=== PATIENT | female | born 1995 | race Caucasian/White ===

== ENCOUNTER 2019-11-29 15:37 | Outpatient (REF) | payer OTHER, SELFPAY ==
[2019-11-29 18:01] LABS: SARS COV2 PCR INHOUSE NEGATIVE (Negative)
== END 2019-11-29 15:38 | disposition home or self-care (01) ==
LOC: HO.LAB 15:37
PROVIDERS: PCP Internal Medicine; Visit Provider Internal Medicine
DX: Z20.828 Contact with and (suspected) exposure to other viral communicable diseases (principal)
CPT/HCPCS: 87635

== ENCOUNTER 2019-12-02 08:13 | Outpatient (REF) | payer OTHER, SELFPAY ==
[2019-12-02 08:32] LABS: COVID-19 Test Negative (Negative)
== END 2019-12-02 08:14 | disposition home or self-care (01) ==
LOC: HO.LAB 08:13
PROVIDERS: PCP Internal Medicine; Visit Provider Internal Medicine
DX: Z20.828 Contact with and (suspected) exposure to other viral communicable diseases (principal)
CPT/HCPCS: 87635

== ENCOUNTER 2020-02-15 08:33 | Outpatient (REF) | payer OTHER, SELFPAY ==
[2020-02-16 22:38] LABS: C. trachomatis RNA TMA NOT DETECTED (NOT DETECTED); N. gonorrhoeae RNA TMA NOT DETECTED (NOT DETECTED)
== END 2020-02-15 08:34 | disposition home or self-care (01) ==
LOC: HO.LAB 08:33
PROVIDERS: PCP Internal Medicine; Visit Provider Advanced Practice Midwife
DX: Z01.419 Encounter for gynecological examination (general) (routine) without abnormal findings (principal); R79.89 Other specified abnormal findings of blood chemistry; E66.9 Obesity, unspecified; K76.0 Fatty (change of) liver, not elsewhere classified
CPT/HCPCS: 36415; 87210; 87491; 87591; 88142

== ENCOUNTER 2020-05-17 20:36 | Outpatient (REF) | payer OTHER, SELFPAY | END 2020-05-17 20:37 | disposition home or self-care (01) | LOC: HO.LAB 20:36 | PROVIDERS: Visit Provider Nurse Practitioner Primary Care | DX: J02.9 Acute pharyngitis, unspecified (principal) | CPT/HCPCS: 87071; 87880 ==

== ENCOUNTER 2020-06-03 11:48 | Outpatient (REF) | payer OTHER, SELFPAY ==
[2020-06-03 13:16] LABS: Alanine Aminotransferase 285 U/L (0-31); Aspartate Amino Transferase 128 U/L (5-31)
[2020-06-04 01:35] LABS: CT PCR NOT DETECTED (Not Detect.); NG PCR NOT DETECTED (Not Detect.)
== END 2020-06-03 11:49 | disposition home or self-care (01) ==
LOC: HO.LAB 11:48
PROVIDERS: PCP Internal Medicine; Visit Provider Advanced Practice Midwife
DX: Z01.419 Encounter for gynecological examination (general) (routine) without abnormal findings (principal); R79.89 Other specified abnormal findings of blood chemistry
CPT/HCPCS: 84450; 84460; 87491; 87591

== ENCOUNTER → 2020-06-05 10:56 | Outpatient (BNVA) | payer OTHER, SELFPAY | PROVIDERS: Visit Provider Advanced Practice Midwife ==

== ENCOUNTER 2020-06-07 16:39 | Outpatient (REF) | payer OTHER, SELFPAY ==
[2020-06-07 18:04] LABS: Alanine Aminotransferase 352 U/L (0-31); Albumin Level 4.3 g/dL (3.5-5.0); Alkaline Phosphatase 80 U/L (39-117); Aspartate Amino Transferase 203 U/L (5-31); Bilirubin Direct 0.2 mg/dL (0.0-0.5); Bilirubin Total 0.4 mg/dL (0.0-1.0); Total Protein 7.2 g/dL (6.5-8.0)
[2020-06-07 18:24] LABS: Ferritin 473 ng/mL (10-122)
[2020-06-08 14:01] LABS: Alpha 1 Anti-trypsin 205 mg/dL (83-199); Ceruloplasmin 41 mg/dL (18-53)
[2020-06-10 03:55] LABS: Hepatitis B Core Antibody Nonreactive (Nonreactive); ~Hepatitis B Surface Antibody NONREACTIVE (Nonreactive)
[2020-06-10 04:03] LABS: HBsAGNum1 0.19 S/CO (0.00-0.99); Hepatitis B Surface Antigen Negative (Negative); ~HepC Num1 0.08 S/CO (0.00-0.79); ~Hepatitis C Antibody Nonreactive (Nonreactive)
[2020-06-10 12:47] LABS: Venous Lead <1 mcg/dL (<5)
[2020-06-12 08:14] LABS: ~Hepatitis A Antibody IgM Nonreactive (Nonreactive)
== END 2020-06-07 16:40 | disposition home or self-care (01) ==
LOC: HO.LAB 16:39
PROVIDERS: PCP Internal Medicine; Visit Provider Internal Medicine
DX: R94.5 Abnormal results of liver function studies (principal)
CPT/HCPCS: 36415; 80076; 82103; 82390; 82728; 83655; 86704; 86706; 86709; 86803; 87340

== ENCOUNTER 2020-06-12 15:32 | Outpatient (REF) | payer OTHER, SELFPAY ==
[2020-06-14 15:06] LABS: Alpha 1 Anti-trypsin 177 mg/dL (83-199)
== END 2020-06-12 15:33 | disposition home or self-care (01) ==
LOC: HO.LAB 15:32
PROVIDERS: PCP Internal Medicine; Visit Provider Internal Medicine
DX: R79.89 Other specified abnormal findings of blood chemistry (principal)
CPT/HCPCS: 36415; 81256; 82103; 82104

== ENCOUNTER 2020-06-14 09:01 | Outpatient (REF) | payer OTHER, SELFPAY ==
[2020-06-14 11:57] LABS: Hematocrit 46.2 % (37-47); Hemoglobin 14.6 g/dl (12.0-16.0); Mean Corpuscular HGB Conc 31.6 g/dl (31.0-35.0); Mean Corpuscular Hemoglobin 28.3 pg (27.0-33.0); Mean Corpuscular Volume 89.7 fL (80-98); Mean Platelet Volume 11.9 fL (9.4-12.3); Platelet Count 257 X10*3/uL (160-400); Red Blood Count 5.15 X10*6/uL (4.20-5.50); Red Cell Distribution Width 12.7 % (11.0-16.0); White Blood Count 7.9 X10*3/uL (4.8-10.8)
[2020-06-14 12:03] LABS: Alanine Aminotransferase 361 U/L (0-31); Albumin Level 4.3 g/dL (3.5-5.0); Alkaline Phosphatase 81 U/L (39-117); Anion Gap 13 (12-20); Aspartate Amino Transferase 159 U/L (5-31); Bilirubin Total 0.8 mg/dL (0.0-1.0); Blood Urea Nitrogen 14 mg/dL (9-16); Calcium 9.4 mg/dL (8.4-10.2); Carbon Dioxide 25 mmol/L (22-29); Chloride 106 mmol/L (96-108); Cholesterol 169 mg/dL; Estimated Glomerular Filt Rate > 60; Glucose Random 90 mg/dL (60-115); HDL Cholesterol 36 mg/dL; LDL Cholesterol Calculated 117 mg/dl; Potassium 4.3 mmol/L (3.3-5.1); Sodium 140 mmol/L (135-145); Total Protein 7.1 g/dL (6.5-8.0); Triglycerides 83 mg/dL
[2020-06-14 12:30] LABS: Estimated Average Glucose 111 mg/dL; Ferritin 301 ng/mL (10-122); Hemoglobin A1c % 5.5 %; TSH reflex Free T4 1.47 uIU/mL (0.32-4.0)
[2020-06-14 12:36] LABS: Erythrocyte Sedimentation Rate 5 MM/HR (0-20)
[2020-06-14 12:42] LABS: Gamma Glutamyl Transpeptidase 148 U/L (7-33)
[2020-06-15 14:01] LABS: Anti Nuclear Antibody Screen NEGATIVE (NEGATIVE)
[2020-06-17 16:06] LABS: Transglutaminase Ab IgG 7 U/mL; Transglutaminase IgA 1 U/mL
[2020-06-18 14:57] LABS: Immunoglobulin G 1238 mg/dL (600-1640)
[2020-06-19 12:44] LABS: Aldolase 19.2 U/L (<=8.1); Smooth Muscle Antibody <20 U (<20); Soluble Liver Ag Autoantibody <20.1 U (0.0-20.0)
== END 2020-06-14 09:02 | disposition home or self-care (01) ==
LOC: HO.LAB 09:01
PROVIDERS: PCP Internal Medicine; Referring Provider Internal Medicine; Visit Provider Internal Medicine Gastroenterology
DX: R10.33 Periumbilical pain (principal); R79.82 Elevated C-reactive protein (CRP); K52.839 Microscopic colitis, unspecified; R79.89 Other specified abnormal findings of blood chemistry; K76.0 Fatty (change of) liver, not elsewhere classified; G89.29 Other chronic pain
CPT/HCPCS: 36415; 80053; 80061; 81256; 82085; 82550; 82728; 82784; 82977; 83036; 83516; 83520; 84443; 85027; 85652; 86038; 86039; 86140; 86255

== ENCOUNTER 2020-07-02 20:34 | Outpatient (REF) | payer OTHER, SELFPAY ==
[2020-07-02 21:04] LABS: COVID-19 Test Negative (Negative)
== END 2020-07-02 20:35 | disposition home or self-care (01) ==
LOC: HO.LAB 20:34
PROVIDERS: Visit Provider Internal Medicine
DX: Z20.822 Contact with and (suspected) exposure to COVID-19 (principal)
CPT/HCPCS: 36415; 87635

== ENCOUNTER 2020-07-16 08:26 | Outpatient (REF) | payer OTHER, SELFPAY ==
--- NOTE | ~2020-07-16 | US_ITS ---
EXAMINATION: US COMPLETE ABDOMEN WITH LIVER ELASTOGRAPHY CLINICAL INFORMATION: Increased liver function tests. COMPARISON: Abdominal ultrasound dated 10/10/2019. TECHNIQUE: Real-time imaging of the abdominal viscera. Noninvasive ultrasound liver fibrosis assessment is performed using [employer]ar[employer] ElastPQ point quantification shear wave elastography (pSWE) with a C5-2 MHz transducer. Multiple elastography samples are obtained. FINDINGS: PANCREAS: Normal. The visualized pancreatic head and body are normal in appearance. The remainder of the pancreas is obscured from visualization by the overlying bowel gas. ABDOMINAL AORTA: The proximal, middle, and distal aortic segments are normal in caliber. INFERIOR VENA CAVA: Visualized portions are normal. LIVER: The liver demonstrates normal size, contour and generally increased echogenicity. No focal lesion or intrahepatic biliary duct dilatation. The right lobe measures 16.7 cm in length. The left lobe measures 9.5 cm in length. Portal flow is towards the liver (hepatopetal). Shear wave liver elastography median stiffness is 1.52 m/s (reference: normal median stiffness is 1.3 m/s or less). IQR/median stiffness to assess sampling precision is 0.07 (reference: good quality data set is IQR/median stiffness of 0.15 or less). GALLBLADDER: Normal. The gallbladder is physiologically distended without evidence of stones, sludge, polyps, wall thickening or pericholecystic fluid. COMMON BILE DUCT: Normal in caliber measuring 0.2 cm in diameter. RIGHT KIDNEY: Normal. No hydronephrosis. No renal calculi or focal parenchymal lesions. The kidney measures 11.0 cm in maximum dimension. LEFT KIDNEY: Normal. No hydronephrosis. No renal calculi or focal parenchymal lesions. The kidney measures 12.2 cm in maximum dimension. SPLEEN: Normal. The spleen measures 10.8 cm in maximum dimension. FREE FLUID: None. US/US abdomen comp w elastography IMPRESSION: 1. There is generalized increase in hepatic echotexture, consistent with fatty infiltration or hepatocellular disease. Please correlate clinically. No focal hepatic mass or intrahepatic biliary dilatation is seen. 2. Liver elastography: In the absence of other known clinical signs, measurements rule out compensated advanced chronic liver disease. If there are known clinical signs, further testing may be needed for confirmation. REFERENCE: Society of Radiologists in Ultrasound Liver Stiffness Thresholds (2020): LIVER STIFFNESS THRESHOLDS: *Liver Stiffness equal or less than 1.3 m/s: High probability of being normal. *Liver Stiffness less than 1.7 m/s: In the absence of other known clinical signs, rules out compensated advanced chronic liver disease. *Liver Stiffness 1.7-2.1 m/s: Suggestive of compensated advanced chronic liver disease but need further test for confirmation. *Liver Stiffness over 2.1 m/s: Rules in compensated advanced chronic liver disease. *Liver Stiffness over 2.4 m/s: Suggestive of clinically significant portal hypertension. QUALITY OF DATA SET: *IQR/Median value equal or less than 0.15 implies a quality data set. *IQR/Median value over 0.15 implies a poor quality data set. SIGNIFICANT CHANGE FROM PRIOR EXAM: Significant change if liver stiffness measurement is 10% or greater from prior exam. OTHER CONSIDERATIONS: The stage of liver fibrosis may be overestimated in the setting of acute hepatitis, liver inflammation, elevated liver function tests, hepatic vascular congestion, obstructive cholestasis, non-fasting state, and infiltrative diseases such as amyloidosis and lymphoma. In some patients with NAFLD, the liver stiffness thresholds for compensated advanced chronic liver disease may be lower. In causes other than viral hepatitis and NAFLD, liver stiffness thresholds are not well established.
--- NOTE | ~2020-07-16 | US_ITS ---
EXAMINATION: DUPLEX PORTAL VENOUS SYSTEM CLINICAL INFORMATION: Elevated liver function test; question Budd-Chiari syndrome. COMPARISON: Abdominal ultrasound dated 10/10/2019. TECHNIQUE: Using a curved array transducer with grayscale, pulse Doppler and color Doppler modalities, ultrasound examination performed of the portal venous system. FINDINGS: The extrahepatic, main, right, left and portal venous segments show hepatopedal flow. The main, right and left hepatic arteries show antegrade flow. The main hepatic artery shows a peak systolic velocity of 63 cm/s. The middle, left and right hepatic vein segments show normal directional flow. The inferior vena cava is patent, with normal directional flow. No ascites is seen. No abnormal venous collaterals are seen. US/US duplex arterial venous comp IMPRESSION: Unremarkable Doppler examination of the abdomen, with normal directional flow seen of the portal veins, hepatic artery branches, hepatic veins and the inferior vena cava.
== END 2020-07-16 08:27 | disposition home or self-care (01) ==
LOC: HO.US 08:26
PROVIDERS: PCP Internal Medicine; Visit Provider Internal Medicine Gastroenterology
DX: K76.0 Fatty (change of) liver, not elsewhere classified (principal); R79.89 Other specified abnormal findings of blood chemistry
CPT/HCPCS: 76705; 76981; 93975

== ENCOUNTER 2020-07-22 10:27 | Day surgery (SDC) | payer OTHER, SELFPAY ==
[2020-07-22 10:59] VITALS: BMI 38.0
[2020-07-22 11:02] VITALS: BP 101/64; PULSE 82; RESP 16; TEMP 36.4; O2SAT 97
[2020-07-22 11:12] LABS: UPreg QC Valid YES; Urine Pregnancy NEGATIVE (NEGATIVE)
--- NOTE | 2020-07-22 11:20 | P.CONAN_ITS ---
[facility] Active Problems Active Problems: All Active Problems (Updated 06/10/20 @ 14:37 by Cristine Gregory MD) Elevated ferritin (Acute) LFT elevation (Acute) Elevated LFTs (Acute) Fatty liver (Acute) Obesity (BMI 35.0-39.9 without comorbidity) (Acute) Encounter for IUD removal (Acute) control counseling (Acute) Well woman exam with routine gynecological exam (Acute) Cystitis (Acute) Pelvic pressure in female (Acute) Past Medical History Medical History Cystitis Elevated LFTs Pelvic pressure in female Family History Family History Paternal Grandmother Diabetes Paternal Aunt Liver disease Surgical History Surgical History [place] teeth removed Social History Social History Alcohol intake: current Alcohol intake frequency: holidays/special occasions only Patient Tobacco Use Status: Current someday Tobacco user Tobacco use type: Cigarette Use of substances other than those prescribed or required for medical reasons: No Are you DNR?: No Advance Directives: No Advance Directives Information Provided: Yes Advance Directives on File: No Gender identity: female Meds Allergies Allergy/AdvReac Type Severity Reaction Status Date / Time No Known Allergies Allergy Verified 06/14/20 09:13 [No Known Allergies*] Exam Exam Date and Time: July 22, 2020 1120 Height,Weight and Vital Signs: Height 5 ft 3 in Weight 97.522 kg Last Vital Signs Temp 97.5 F 07/22/20 11:02 Pulse 82 07/22/20 11:02 Resp 16 07/22/20 11:02 BP 101/64 07/22/20 11:02 Pulse Ox 97 07/22/20 11:02 Pertinent Lab Results Pertinent Lab Results: Laboratory Tests 07/22/20 10:57 Urine Test NEGATIVE Airway Mallampati Class: II TM Dist: >3cm Neck ROM: Full
--- NOTE | 2020-07-22 11:37 | MHC.SHP ---
Pre-Procedural Eval Section B Chief Complaint: elevated LFTs Details of Present Illness: pos celiac serology Relevant Family History (Specify if Yes): No Relevant Social History: Tobacco Use Present Medications: see Short Stay Collaborative assessment Medical History: Significant History (Cystitis Elevated LFTs Pelvic pressure in female) History of Previous Operations: Relevant previous surgery/procedure and date(s) (wisdom tooth removal) Allergies: Allergies Allergy/AdvReac Type Severity Reaction Status Date / Time No Known Allergies Allergy Verified 06/14/20 09:13 [No Known Allergies*] Review of Systems Sugical H&P ROS: Negative: Constitution, Cardiovascular, Respiratory, Neurological, Psychiatric, Hem-Onc, Allergic/Immunologic, Gastrointestinal, Genitourinary, Musculoskeletal, Integumentary, Endocrine and Eyes/Ears/Nose/Throat Exam Surgical H&P Exam: Normal: HEENT, Normal: Heart, Normal: Lungs, Normal: Extremities, Normal: Abdomen, Normal: Skin and Normal: Neurological Plan Diagnosis/Plan: Unchanged I have reviewed the history and physical and performed a pertinent physical examination on my patient. No changes have occurred unless specified.
--- NOTE | 2020-07-22 12:06 | P.BOP_ITS ---
Brief Operative Note Date of Service: 07/22/20 Pre-op diagnosis: pos celiac serology Post-op diagnosis: same Procedure: see op note Surgeon: Luis Miguel Peters MD Anesthesia: MAC Was an Shell Press Operator used for this Procedure?: No Estimated blood loss (mL): 0 Condition: stable Disposition: PACU
--- NOTE | 2020-07-22 12:07 | W.PM.OPN ---
Operative Note Operative Note Date of Service: 07/22/20 Narrative: Procedure Description: EGD FLEXIBLE TRANSORAL UPPER GASTROINTESTINAL ENDOSCOPY UPPER ENDOSCOPY Consent: Indications for the procedure and potential complications of bleeding, perforation, reaction to medications and missed diagnosis were discussed with the patient and informed consent was obtained. Instrument: Olympus GIF H 190 J mid size upper endoscope Monitoring: Vital signs and clinical assessment, continuous EKG monitoring, Pulse oximetry, Carbon Dioxide monitoring and blood pressure monitoring were done throughout the procedure. Procedure: The patient was placed in the left lateral decubitis position and pre-procedure medications were administered and a bite block was placed. The endoscope was inserted into the mouth and advanced under direct vision to the third part of duodenum. A careful inspection was made as the upper endoscope was withdrawn including a retroflexed examination of the proximal stomach; Findings and interventions are described below. Findings: Larynx:normal Esophagus: GE junction at 35 cm, diaphragm hiatus at 35 cm, no varices or esophagitis. Stomach: Patchy gastric erythema bx taken. Biopsies were obtained. Grade 2 flap valve on retroflexed examination of the cardia. A 10 mm sessile polyp noted in proximal stomach body and removed with cold snare Duodenum: Normal bulb and descending duodenum, bx taken Intervention: Biopsies as noted above, cold snare polypectomy Impression/Findings: gastric polyp PLAN: await pathology, if neg for celiac then liver biopsy, note she has elevated aldolase too but GGT also elevated.
[2020-07-22 12:14] VITALS: BP 92/51; PULSE 101; RESP 16; TEMP 36.7; O2SAT 100
[2020-07-22 12:33] VITALS: BP 110/70; PULSE 77; RESP 18; TEMP 36.4; O2SAT 99
[2020-07-22 12:48] VITALS: PULSE 100; RESP 20; O2SAT 100
== END 2020-07-22 13:23 | disposition home or self-care (01) ==
PROVIDERS: Anesthesiology; PCP Internal Medicine; Visit Provider Internal Medicine Gastroenterology
PROC: 0DJ08ZZ Inspection of Upper Intestinal Tract, Via Natural or Artificial Opening Endoscopic (ICD-10-PCS; CPT 43235; principal; 2020-07-22 13:40)
DX: R79.89 Other specified abnormal findings of blood chemistry (principal); K31.7 Polyp of stomach and duodenum
CPT/HCPCS: 43251; 43239; 81025; 88305; 88342

== ENCOUNTER → 2020-10-29 11:00 | Outpatient (BNVA) | payer OTHER, SELFPAY | PROVIDERS: PCP Internal Medicine; Visit Provider Dietitian, Registered | DX: K90.0 Celiac disease (principal) | CPT/HCPCS: 97802 ==

== ENCOUNTER 2020-11-01 14:15 | Emergency (ER) | payer OTHER, SELFPAY ==
--- NOTE | ~2020-11-01 | XR_ITS ---
EXAMINATION: XR CHEST CLINICAL INFORMATION: Covid pneumonia. COMPARISON: Chest 02/15/2018 TECHNIQUE: Frontal view of the chest was obtained. FINDINGS: No significant abnormality is noted involving the heart, lungs, mediastinum, bony thorax or soft tissues. XR/XR chest 1V IMPRESSION: Unremarkable chest examination.
--- NOTE | ~2020-11-01 | CT_ITS ---
EXAMINATION: CT ANGIOGRAM OF THE CHEST WITH AND WITHOUT CONTRAST (CT PULMONARY ANGIOGRAM FOR PE) CLINICAL INFORMATION: COVID positive. Pleuretic chest pain. COMPARISON: Chest radiograph dated from 02/15/2018. TECHNIQUE: Prior to contrast administration, noncontrast localization images were obtained. Subsequently, multidetector volumetric imaging was performed from the thoracic inlet to below the diaphragms following the administration of 71 mL Omnipaque 350 intravenous contrast. No contrast reaction reported Sagittal, coronal, and MIP oblique sagittal reformatted images were obtained on the CT workstation, uploaded to PACS, and reviewed. This CT examination was performed using dose optimization techniques as appropriate, variously including the following: *Automated exposure control *Adjustment of mA and/or kV according to patient size (this includes techniques or standardized protocols for targeted exams where dose is matched to indication/reason for exam; i.e. extremities or head) *Use of iterative reconstruction technique Total exam dose-length product 301 mGy-cm FINDINGS: QUALITY OF STUDY/CONTRAST BOLUS: Satisfactory. PULMONARY ARTERIES: No central or segmental pulmonary emboli. THORACIC AORTA: No aneurysm or dissection. LUNG: Mild dependent atelectasis. No focal airspace opacities or suspicious pulmonary nodules. PLEURA: No pleural effusion or pneumothorax. MEDIASTINUM: Normal heart size. No pericardial effusion. No hilar or mediastinal lymphadenopathy. No evidence of septal bowing or right heart strain. CHEST WALL/AXILLA: No axillary or internal mammary lymphadenopathy. OSSEOUS STRUCTURES: No acute or suspicious osseous abnormality. UPPER ABDOMEN: Unremarkable. No reflux of contrast into the hepatic veins to suggest elevated right heart pressures. CT/CT angio chest PE protocol IMPRESSION: No evidence of pulmonary embolism. No acute thoracic abnormalities. VTE: negative
[2020-11-01 14:55] VITALS: BP 128/77; PULSE 95; RESP 18; TEMP 37; O2SAT 100; BMI 37.0
--- NOTE | 2020-11-01 15:03 | ECG_ITS ---
Test Reason : COVID Blood Pressure : / mmHG Vent. Rate : 080 BPM Atrial Rate : 080 BPM P-R Int : 156 ms QRS Dur : 092 ms QT Int : 386 ms P-R-T Axes : 035 -01 005 degrees QTc Int : 445 ms Normal sinus rhythm with sinus arrhythmia Moderate voltage criteria for LVH, may be normal variant Nonspecific T wave abnormality Abnormal ECG When compared with ECG of 15-OCT-2017 20:02, No significant change was found Referred By: Javed Magana Electronically Signed By:AYANNA HARGROVE
--- NOTE | 2020-11-01 15:27 | ED_ITS ---
HPI - URI/Sore Throat General Chief Complaint: Upper Respiratory Symptoms Stated Complaint: SOB Time Seen by Provider: 11/01/20 14:47 Source: patient Mode of arrival: ambulatory Limitations: no limitations History of Present Illness HPI Narrative: Patient presents to ED for chest pressure with pleuritic chest pain. Patient recently tested positive for COVID 4 days ago. Patient states she is fully vaccinated. Patient states she no longer on control pills. Patient denies any leg swelling, calf tenderness, dizziness, or weakness. Related Data Previous Rx's Medication Instructions Recorded codeine 10 mg-guaifenesin 100 mg/5 10 ml PO Q4-6H PRN 3 Days #180 ml 11/01/20 mL oral liquid (Guaifenesin AC) dexamethasone 6 mg tablet 6 mg PO DAILY 10 Days #10 tab 11/01/20 (Decadron) Allergies Allergy/AdvReac Type Severity Reaction Status Date / Time No Known Allergies Allergy Verified 11/01/20 14:55 [No Known Allergies*] Review of Systems Review of Systems: Yes all other systems are reviewed and are negative Constitutional: Constitutional: Reports as per HPI and Reports no additional constitutional complaints Eyes: Eyes: Reports as per HPI and Reports no additional eye complaints ENT: Reports system reviewed and no additional complaints, except as documented and Reports as per HPI Cardiovascular: Cardiovascular: Reports as per HPI, Reports no additional cardiovascular complaints, Reports chest pain at rest and Reports dyspnea Respiratory: Respiratory: Reports as per HPI, Reports no additional respiratory complaints, Reports hemoptysis, Reports pain on inspiration and Reports dyspnea Gastrointestinal: Gastrointestinal: Reports as per HPI and Reports no additional gastrointestinal complaints Musculoskeletal: Musculoskeletal: Reports no additional musculoskeletal complaints and Reports as per HPI Neurologic: Reports system reviewed and no additional complaints, except as documented and Reports as per HPI Psychiatric: Psychiatric: Reports no additional psychiatric complaints and Reports as per HPI PMFSH Past Medical History Medical History (Updated 11/01/20 @ 19:14 by LUCI Payton) Asthma Cystitis Elevated LFTs Pelvic pressure in female Surgical History [place] teeth removed Family History Family History Paternal Grandmother Diabetes Paternal Aunt Liver disease Social History Social History Alcohol intake: former Patient Tobacco Use Status: Current someday Tobacco user Tobacco use type: Cigarette Use of substances other than those prescribed or required for medical reasons: No Advance Directives: No Advance Directives Information Provided: No Patient : No Gender identity: Female Physical Exam Vital Signs: Vital Signs: Last Vital Signs Temp 98.6 F 11/01/20 14:55 Pulse 67 11/01/20 17:02 Resp 18 11/01/20 16:18 BP 98/61 11/01/20 16:18 Pulse Ox 100 11/01/20 16:18 Body Mass Index 37.0 Const: General: cooperative, healthy appearing, comfortable, no acute distress, well developed, alert, awake and Physically active Orientation/consciousness: patient oriented x3 HENMT: Head: Yes normal to inspection, Yes No palpable skull fracture present, Yes normocephalic, Yes atraumatic and No abrasion Eyes: General: appearance normal, both eyes and all related structures Neck: Neck: Yes normal visual inspection, Yes full ROM, Yes no lymphadenopathy, Yes no meningeal signs, Yes trachea midline, Yes supple and No tender Chest: Chest palpation & inspection: normal inspection of the chest and normal palpation of entire chest wall Breast/axilla palpation: normal palpation of the breasts Resp: Effort & Inspection: normal respiratory effort and able to speak in complete sentences Auscultation: clear to auscultation bilaterally Cardio: Jugular venous distension: no JVD Heart sounds: S1 normal heart sound present and S2 normal heart sound present GI: Inspection: Yes normal to inspection and No abdominal wall ecchymosis Palpation (GI): Soft to palpation, not firm, nontender, no guarding and not rigid : General: No CVA tenderness and Yes no CVA tenderness Back/Spine/Pelvis: Back: no CVA tenderness, No CVA tenderness and No back tenderness Skin: General skin exam: no rashes or lesions noted and elasticity normal Neuro: General: patient oriented x3, gait normal, no meningeal signs and CN's II-XI intact bilaterally Cranial nerves: Yes CN's II-XII intact bilaterally Extrem: Other: Lower extremity negative for calf tenderness, swelling, pitting edema General: Yes normal to inspection and Yes full ROM Psych: Appearance: grossly normal, well kempt and not disheveled Course Course Course Narrative: Patient stated hemoptysis with chest pain and positive COVID. Will do labs and most likely chest CT to rule out PE. Lungs are clear. Vital signs stable Reevaluation(s) Reevaluation #1: Patient's EKG negative STEMI. First troponin negative. BNP negative. Chest CT negative for PE or pneumonia. Patient is feeling better. Will do walking ambulation oxygen and repeat troponin. Time: 18:42 Reevaluation #2: O2 saturation on ambulation 97%. Second troponin came back negative Time: 19:13 MDM - URI/Sore Throat MDM Narrative Medical decision making narrative: COVID Lab Data Result diagrams: 11/01/20 16:17 11/01/20 16:17 Labs: Lab Results 11/01/20 11/01/20 11/01/20 Range/Units 16:17 16:17 16:17 WBC 5.9 (4.8-10.8) X10*3/uL RBC 4.60 (4.20-5.50) X10*6/uL Hgb 13.1 (12.0-16.0) g/dl Hct 40.8 (37-47) % MCV 88.7 (80-98) fL MCH 28.5 (27.0-33.0) pg MCHC 32.1 (31.0-35.0) g/dl RDW 13.0 (11.0-16.0) % Plt Count 214 (160-400) X10*3/uL MPV 11.3 (9.4-12.3) fL Immature Gran % (Auto) 0.3 (0.0-0.4) % Neut % (Auto) 52.5 (45-73) % Lymph % (Auto) 27.1 (20-40) % Bollinger % (Auto) 15.9 H (2-11) % Eos % (Auto) 3.9 (0-4) % Baso % (Auto) 0.3 (0-2) % Lymph # (Auto) 1.6 (1.2-4.9) X10*3/uL Bollinger # (Auto) 0.9 (0.1-1.2) X10*3/uL Eos # (Auto) 0.2 (0.0-0.4) X10*3/uL Baso # (Auto) 0.0 (0.0-0.2) X10*3/uL Abs Immat Gran (auto) 0.02 (0.00-0.03) X10*3/uL Absolute Neuts (auto) 3.1 (2.0-8.3) X10*3/uL Absolute Nucleated RBC 0.000 (0.0-0.012) X10*3/uL Nucleated RBC % (auto) 0.0 (0.0-0.2) /100WBC PT 13.0 (9.9-13.0) SEC INR 1.1 (0.9-1.1) APTT 39.5 H (24.1-38.0) SEC Sodium 141 (135-145) mmol/L Potassium 3.6 (3.3-5.1) mmol/L Chloride 108 (96-108) mmol/L Carbon Dioxide 24 (22-29) mmol/L Anion Gap 13 (12-20) BUN 6 L D (9-16) mg/dL Creatinine 0.71 (0.5-1.4) mg/dL Estim Creat Clear Calc 134.9 Estimated GFR > 60 Random Glucose 90 (60-115) mg/dL Calcium 9.2 (8.4-10.2) mg/dL Ferritin 207 H (10-122) ng/mL Total Bilirubin 0.5 (0.0-1.0) mg/dL Direct Bilirubin 0.2 (0.0-0.5) mg/dL AST 52 H (5-31) U/L ALT 95 H (0-31) U/L Alkaline Phosphatase 67 (39-117) U/L Lactate Dehydrogenase 195 (122-220) U/L Troponin I High Sens (<3.5-17.0) ng/L B-Natriuretic Peptide (<100) pg/mL Total Protein 6.9 (6.5-8.0) g/dL Albumin 4.1 (3.5-5.0) g/dL Procalcitonin ng/mL Beta HCG, Quant mIU/mL 11/01/20 11/01/20 11/01/20 Range/Units 16:17 16:17 16:17 WBC (4.8-10.8) X10*3/uL RBC (4.20-5.50) X10*6/uL Hgb (12.0-16.0) g/dl Hct (37-47) % MCV (80-98) fL MCH (27.0-33.0) pg MCHC (31.0-35.0) g/dl RDW (11.0-16.0) % Plt Count (160-400) X10*3/uL MPV (9.4-12.3) fL Immature Gran % (Auto) (0.0-0.4) % Neut % (Auto) (45-73) % Lymph % (Auto) (20-40) % Bollinger % (Auto) (2-11) % Eos % (Auto) (0-4) % Baso % (Auto) (0-2) % Lymph # (Auto) (1.2-4.9) X10*3/uL Bollinger # (Auto) (0.1-1.2) X10*3/uL Eos # (Auto) (0.0-0.4) X10*3/uL Baso # (Auto) (0.0-0.2) X10*3/uL Abs Immat Gran (auto) (0.00-0.03) X10*3/uL Absolute Neuts (auto) (2.0-8.3) X10*3/uL Absolute Nucleated RBC (0.0-0.012) X10*3/uL Nucleated RBC % (auto) (0.0-0.2) /100WBC PT (9.9-13.0) SEC INR (0.9-1.1) APTT (24.1-38.0) SEC Sodium (135-145) mmol/L Potassium (3.3-5.1) mmol/L Chloride (96-108) mmol/L Carbon Dioxide (22-29) mmol/L Anion Gap (12-20) BUN (9-16) mg/dL Creatinine (0.5-1.4) mg/dL Estim Creat Clear Calc Estimated GFR Random Glucose (60-115) mg/dL Calcium (8.4-10.2) mg/dL Ferritin (10-122) ng/mL Total Bilirubin (0.0-1.0) mg/dL Direct Bilirubin (0.0-0.5) mg/dL AST (5-31) U/L ALT (0-31) U/L Alkaline Phosphatase (39-117) U/L Lactate Dehydrogenase (122-220) U/L Troponin I High Sens < 3.5 (<3.5-17.0) ng/L B-Natriuretic Peptide < 10 (<100) pg/mL Total Protein (6.5-8.0) g/dL Albumin (3.5-5.0) g/dL Procalcitonin 0.06 ng/mL Beta HCG, Quant < 2 mIU/mL Discharge Plan Discharge Clinical Impression: COVID Patient Disposition: Home, Self-Care Instructions: COVID-19 (Coronavirus Disease 2019) (ED) Additional Instructions: Return to the ED for worsening chest pain, shortness of breath, O2 saturation below 95%, weakness, dizziness, intractable fever, chills, or any other concerning symptoms. Please follow up with PCP. Prescriptions: New codeine-guaifenesin [Guaifenesin AC] 10-100 mg/5 mL liquid 10 ml PO Q4-6H PRN (Reason: cold symptoms) 3 Days Qty: 180 RF: 0 dexamethasone [Decadron] 6 mg tablet 6 mg PO DAILY 10 Days Qty: 10 RF: 0 Stand Alone Forms: Work/School Release Print Language: Czech
[2020-11-01 16:18] VITALS: BP 98/61; PULSE 85; RESP 18; O2SAT 100
[2020-11-01] MEDS: 0.9 % Sodium Chloride 1,000 ML 999 ML IV (16:18)
--- NOTE | 2020-11-01 16:23 | PC.NURSE ---
unlabored resp at rest. hoarse cough. skin pwd.
[2020-11-01 16:27] LABS: MANUAL DIFF FLAG NO
[2020-11-01 16:30] LABS: Basophils Percent Auto 0.3 % (0-2); Eosinophils Absolute Auto 0.2 X10*3/uL (0.0-0.4); Eosinophils Percent Auto 3.9 % (0-4); Hematocrit 40.8 % (37-47); Hemoglobin 13.1 g/dl (12.0-16.0); Imm Gran Abs Auto 0.02 X10*3/uL (0.00-0.03); Imm Gran Pct Auto 0.3 % (0.0-0.4); Lymphocytes Absolute Auto 1.6 X10*3/uL (1.2-4.9); Lymphocytes Percent Auto 27.1 % (20-40); Mean Corpuscular HGB Conc 32.1 g/dl (31.0-35.0); Mean Corpuscular Hemoglobin 28.5 pg (27.0-33.0); Mean Corpuscular Volume 88.7 fL (80-98); Mean Platelet Volume 11.3 fL (9.4-12.3); Monocytes Absolute Auto 0.9 X10*3/uL (0.1-1.2); Monocytes Percent Auto 15.9 % (2-11); Neutrophils Absolute Auto 3.1 X10*3/uL (2.0-8.3); Neutrophils Percent Auto 52.5 % (45-73); Platelet Count 214 X10*3/uL (160-400); White Blood Count 5.9 X10*3/uL (4.8-10.8)
[2020-11-01 16:38] LABS: INTERNATIONAL NORM RATIO 1.1 (0.9-1.1)
[2020-11-01 16:40] LABS: Partial Thromboplastin Time 39.5 SEC (24.1-38.0)
[2020-11-01 16:46] LABS: Alanine Aminotransferase 95 U/L (0-31); Albumin Level 4.1 g/dL (3.5-5.0); Alkaline Phosphatase 67 U/L (39-117); Anion Gap 13 (12-20); Aspartate Amino Transferase 52 U/L (5-31); Bilirubin Direct 0.2 mg/dL (0.0-0.5); Bilirubin Total 0.5 mg/dL (0.0-1.0); Blood Urea Nitrogen 6 mg/dL (9-16); Calcium 9.2 mg/dL (8.4-10.2); Carbon Dioxide 24 mmol/L (22-29); Chloride 108 mmol/L (96-108); Creatinine Clr Calc Pharmacy 134.9; Estimated Glomerular Filt Rate > 60; Glucose Random 90 mg/dL (60-115); Lactate Dehydrogenase 195 U/L (122-220); Potassium 3.6 mmol/L (3.3-5.1); Sodium 141 mmol/L (135-145); Total Protein 6.9 g/dL (6.5-8.0)
[2020-11-01 16:52] LABS: B Type Natriuretic Peptide < 10 pg/mL (<100); HCG Quantitative < 2 mIU/mL; Troponin-I High Sensitivity < 3.5 ng/L (<3.5-17.0)
[2020-11-01] MEDS: Albuterol/Iprat 2.5/0.5MG 3 ML AMPUL.NEB INHALE (17:01)
[2020-11-01 17:02] VITALS: PULSE 67; O2SAT 99
[2020-11-01 17:04] LABS: Procalcitonin 0.06 ng/mL
[2020-11-01 17:07] LABS: Ferritin 207 ng/mL (10-122)
[2020-11-01] MEDS: iohexoL 350 MG/ML 100 ML INFUS..BTL IV (17:39)
[2020-11-01] MEDS: guaiFEN/Codeine SF 200/20/10ML 10 ML LIQUID PO (19:00)
[2020-11-01 19:12] VITALS: BP 126/79; PULSE 84; RESP 20; TEMP 36.8; O2SAT 100
[2020-11-01 19:38] LABS: Troponin-I High Sensitivity < 3.5 ng/L (<3.5-17.0)
== END 2020-11-01 19:57 | disposition home or self-care (01) ==
PROVIDERS: Physician Assistant; Emergency Provider Emergency Medicine; PCP Internal Medicine
DX: U07.1 COVID-19 (principal); R06.02 Shortness of breath; F17.210 Nicotine dependence, cigarettes, uncomplicated; Z71.6 Tobacco abuse counseling; Z79.899 Other long term (current) drug therapy
CPT/HCPCS: 36415; 71045; 71275; 80053; 82248; 82728; 83615; 83880; 84145; 84484; 84702; 85025; 85610; 85730; 93005; 94640; 96360; 99284; Q9967

== ENCOUNTER 2021-01-29 23:14 | Outpatient (REF) | payer OTHER, SELFPAY ==
[2021-01-29 23:56] LABS: COVID-19 Test Negative (Negative)
== END 2021-01-29 23:15 | disposition home or self-care (01) ==
LOC: HO.LAB 23:14
PROVIDERS: Visit Provider Internal Medicine
DX: Z20.822 Contact with and (suspected) exposure to COVID-19 (principal)
CPT/HCPCS: 36415; 87635

== ENCOUNTER 2021-02-14 22:42 | Outpatient (REF) | payer OTHER, SELFPAY ==
[2021-02-14 23:25] LABS: COVID-19 Test Negative (Negative)
== END 2021-02-14 22:43 | disposition home or self-care (01) ==
LOC: HO.LAB 22:42
PROVIDERS: PCP Internal Medicine; Visit Provider Internal Medicine
DX: Z20.822 Contact with and (suspected) exposure to COVID-19 (principal)
CPT/HCPCS: 87635

== ENCOUNTER 2021-02-17 18:59 | Outpatient (REF) | payer OTHER, SELFPAY ==
[2021-02-17 19:44] LABS: COVID-19 Test Negative (Negative)
== END 2021-02-17 19:00 | disposition home or self-care (01) ==
LOC: HO.LAB 18:59
PROVIDERS: Visit Provider Internal Medicine
DX: Z20.822 Contact with and (suspected) exposure to COVID-19 (principal)
CPT/HCPCS: 87635

== ENCOUNTER 2021-02-18 21:30 | Outpatient (REF) | payer OTHER, SELFPAY ==
[2021-02-18 22:14] LABS: COVID-19 Test Negative (Negative)
== END 2021-02-18 21:31 | disposition home or self-care (01) ==
LOC: HO.LAB 21:30
PROVIDERS: Visit Provider Internal Medicine
DX: Z20.822 Contact with and (suspected) exposure to COVID-19 (principal)
CPT/HCPCS: 87635

== ENCOUNTER 2021-03-05 20:29 | Outpatient (REF) | payer OTHER, SELFPAY ==
[2021-03-05 20:55] LABS: COVID-19 Test Negative (Negative)
== END 2021-03-05 20:30 | disposition home or self-care (01) ==
LOC: HO.LAB 20:29
PROVIDERS: Referring Provider Internal Medicine; Visit Provider Internal Medicine
DX: Z20.822 Contact with and (suspected) exposure to COVID-19 (principal)
CPT/HCPCS: 87635

== ENCOUNTER 2021-08-05 22:48 | Outpatient (REF) | payer OTHER, SELFPAY ==
[2021-08-05 23:20] LABS: Strep A Nucleic Acid Negative (Negative)
== END 2021-08-05 22:49 | disposition home or self-care (01) ==
LOC: HO.LAB 22:48
PROVIDERS: Emergency Medicine; Visit Provider Physician Assistant Medical
DX: J02.9 Acute pharyngitis, unspecified (principal)
CPT/HCPCS: 36415; 87651

== ENCOUNTER 2021-11-28 18:12 | Emergency (ER) | payer OTHER, SELFPAY ==
--- NOTE | ~2021-11-28 | US_ITS ---
EXAMINATION: US OBSTETRICS PELVIC AND TRANSVAGINAL US PELVIC OVARIAN DOPPLER CLINICAL INFORMATION: Abdominal and flank pain. Positive test. COMPARISON: None. LMP: 10/09/2021. Gestational age by maternal dates is 7 weeks 1 day. Estimated date of delivery by maternal dates is 07/16/2022. TECHNIQUE: Real-time scanning of the pelvis is acquired via transabdominal and transvaginal approach. Dedicated color and spectral Doppler evaluation of the ovaries was performed. FINDINGS: There is a single intrauterine gestational sac with visible yolk sac, embryo, and cardiac activity. There is no significant subchorionic hemorrhage or hematoma. Embryonic HR: 119 beats per minute. CRL (crown rump length): 0.41 cm (6 weeks 1 day +/- 4 days). AD (estimated date of delivery): 07/23/2022 +/- 4 days. MATERNAL ADNEXA: The right maternal ovary measures 3.8 x 2.2 x 2.7 cm. 2 findings are demonstrated in the right ovary with peripheral vascularity, measuring 1.2 x 1.0 x 1.3 cm and 1.4 x 1.3 x 1.4 cm, at least one of them represents a collapsing corpus luteal cyst. No significant right ovarian lesion is noted. Normal right intraovarian arterial and venous blood flow is documented on spectral Doppler evaluation. The left maternal ovary measures 2.3 x 1.3 x 1.9 cm. The left ovary is located posterior to the uterus. Color and Doppler flow could not be documented in the left ovary, likely given its posterior location. There is no significant maternal adnexal mass. No maternal pelvic ascites. US/US OB pelvic and transvaginal IMPRESSION: 1. Single live intrauterine gestation with ultrasound gestational age of 6 weeks 1 day +/- 4 days. 2. Estimated date of delivery is 07/23/2022 +/- 4 days. 3. No maternal adnexal mass or pelvic ascites. 4. No sonographic evidence of active right ovarian torsion. Although Doppler assessment of the left ovary could not be performed given its location, there is no convincing sonographic evidence to suggest active left ovarian torsion. No adnexal mass.
--- NOTE | ~2021-11-28 | US_ITS ---
EXAMINATION: US appendix CLINICAL INFORMATION: Reason for Exam RLQ pain COMPARISON: Pelvic ultrasound and 02/27/2021. TECHNIQUE: Linear high frequency graded compression waters scale sonography of the right lower abdominal quadrant. Multiple rental representative grayscale and cine Doppler sonographic images are submitted labeled right lower quadrant. FINDINGS: The appendix is not visualized. No free intraperitoneal fluid collections noted. The visualized abdominal wall is normal in appearance. Partial visualization is made of the right pelvic sidewall vasculature. US/US appendix IMPRESSION: Right lower quadrant (appendix) sonographic exam: *Indeterminate examination. The appendix is not visualized. No right lower quadrant free intraperitoneal fluid noted. This examination is indeterminate with regards to possible acute appendicitis.
--- NOTE | ~2021-11-28 | US_ITS ---
EXAMINATION: US ABDOMEN COMPLETE CLINICAL INFORMATION: Right lower quadrant bilateral flank pain. COMPARISON: Abdominal ultrasound 07/16/2020 TECHNIQUE: Real-time imaging of the abdominal viscera. FINDINGS: PANCREAS: There is less portion of the pancreas is unremarkable. Pancreatic tail is obscured by bowel gas. ABDOMINAL AORTA: The proximal, mid, and distal segments are normal in caliber. INFERIOR VENA CAVA: Visualized portions are normal. LIVER: Normal size. Mild diffuse increased hepatic echotexture greater than the right renal cortex suggesting possible mild fatty infiltration/steatosis. No liver lesion. GALLBLADDER: Normal. The gallbladder is physiologically distended without evidence of stones, sludge, polyps, wall thickening or pericholecystic fluid. COMMON BILE DUCT: Normal in caliber measuring 0.3 cm in diameter. RIGHT KIDNEY: Normal. No hydronephrosis. No renal calculi or focal parenchymal lesions. The kidney measures 11.2 cm in maximum dimension. LEFT KIDNEY: Normal. Slight fullness of the left renal pelvis. No significant hydronephrosis. No renal calculi or focal parenchymal lesions. The kidney measures 11.9 cm in maximum dimension. SPLEEN: Normal. The spleen measures 11.7 cm in maximum dimension. FREE FLUID: None. US/US abdomen complete IMPRESSION: 1. Mild diffuse increased hepatic echotexture suggesting possible mild fatty infiltration/steatosis or hepatocellular disease. No liver lesion. 2. Normal gallbladder. No evidence of cholelithiasis or cholecystitis. 3. No biliary ductal dilation. 4. Slight fullness of the left renal pelvis. No significant hydronephrosis.
[2021-11-28 18:14] VITALS: BP 114/77; PULSE 115; RESP 18; TEMP 36.8; O2SAT 98; BMI 36.8
--- NOTE | 2021-11-28 19:08 | ED_ITS ---
HPI - General Adult General Chief complaint: General Medical Stated complaint: flank pain Time Seen by Provider: 11/28/21 18:54 Source: patient Mode of arrival: ambulatory Limitations: no limitations History of Present Illness HPI narrative: 26 year old female A0 presents to the ED with severe b/l flank pain constant in nature with radiation to right lower quadrant since this morning. Reports associated fevers at home 100.6 T max. Patient reports that the pain is severe, describes as an aching/stabbing sensation. She reports a few weeks ago she had urinary frequency, urgency, dysuria however this resolved about a week ago. Currently not complaining of any urinary symptoms. Patient reports she has ne john had anything like this before. She tells me she has no history of kidney stones or pyelonephritis. She reports that she is currently being followed by [facility] for her OBGYN care, she has not yet an ultrasound to confirm intrauterine , she is scheduled to see them on December 15 however. Patient taking vitamins. Denies chest pain, shortness of breath, nausea, vomiting, urinary frequency, urgency, dysuria, changes in bowel habits, vaginal discharge, vaginal bleeding. Patient reports taking tylenol with little to no relief Related Data Previous Rx's Medication Instructions Recorded codeine 10 mg-guaifenesin 100 mg/5 10 ml PO Q4-6H PRN cold symptoms 3 11/01/20 mL oral liquid (Guaifenesin AC) days #180 mL dexamethasone 6 mg tablet 6 mg PO DAILY 10 days #10 tabs 11/01/20 (Decadron) Allergies Allergy/AdvReac Type Severity Reaction Status Date / Time No Known Allergies Allergy Verified 11/01/20 14:55 [No Known Allergies*] Review of Systems Review of Systems: Constitutional : No Weight loss, + Fever, No Chills, + Fatigue, + Malaise ENT/Mouth : No sore throat, No Rhinorrhea Eyes: No Eye Pain, No Swelling, No Redness Cardiovascular : No Chest Pain, No SOB, No Dyspnea on Exertion, No Orthopnea, No Edema, No Palpitations Respiratory : No Cough, No Sputum, No Wheezing Gastrointestinal : No Nausea, No Vomiting, No Diarrhea, No Constipation, + abdominal Pain, No Hematochezia, No Melena Genitourinary : No Dysuria, No Urinary Frequency, No Hematuria, Musculoskeletal : No joint pain, No Myalgias, No Joint Swelling Skin : No Skin Lesions, No rash Neuro : No Weakness, No Numbness, No Dizziness, No Headache Psych : No Anxiety/Panic, No Depression All other systems reviewed and are negative Yes all other systems are reviewed and are negative [facility] Past Medical History Attestation statement: The following information was validated with the patient. Source: old records reviewed and nursing notes reviewed Medical History Asthma Cystitis Elevated LFTs Pelvic pressure in female Surgical History [place] teeth removed Family History Family History Paternal Grandmother Diabetes Paternal Aunt Liver disease Social History Social History Alcohol intake: former Patient Tobacco Use Status: Former Tobacco user Tobacco use type: Cigarette Use of substances other than those prescribed or required for medical reasons: No Advance Directives: No Advance Directives Information Provided: No Patient : Yes Gender identity: Female Physical Exam ED Vital Signs: Vital Signs - 24 hr 11/28/21 18:14 11/28/21 20:47 11/28/21 23:16 Temperature 98.2 F 98.4 F 98.9 F Pulse Rate 115 H 92 109 H Respiratory Rate 18 12 14 Blood Pressure 114/77 119/69 117/67 Pulse Oximetry 98 100 98 Oxygen Delivery Method Room Air Room Air Room Air BMI result Body Mass Index 36.8 vss Appearance: Alert.? Oriented X3.? No acute distress.? Head: Normocephalic, atraumatic, no step-offs or deformities Eyes: Pupils equal, round and reactive to light.? Neck: Normal inspection.? Neck supple.? CVS: Normal heart rate and rhythm.? Pulses normal.? Respiratory: No respiratory distress.? Breath sounds normal.? Abdomen: Soft and + RLQ pain .? Skin: Skin warm and dry.? Normal skin color.? Normal skin turgor.? Extremities: No lower extremity edema.? No calf ttp. 5/5 strength to bilateral upper and lower extremities Back: + CVA tenderness to right, negative on left. Neuro: Oriented X 3.? No motor deficit.? No sensory deficit. CN 2-12 intact Course Course Course Narrative: Discuss this case with Dr. Palacios agrees with my diagnosis and treatment plan. She reports this is likely constipation or gas. Unlikely appendicitis, recommends watchful waiting for 24. And for patient follow-up with OBGYN as soon as possible. Reevaluation(s) Reevaluation #1: CBC appears to be within normal limits. Chemistry with no acute findings. Patient's hCG elevated at 32,998. Urine clean without infection. COVID negative. CT of the abdomen with mild diffuse increased hepatic echotexture suggesting possible mild fatty infiltration/steatosis or hepatocellular disease. No distinct liver lesions. Normal gallbladder, no evidence of cholelithiasis or cystitis. No biliary duct dilation. Slight fullness of the left renal pelvis however no significant hydronephrosis. Ultrasound showing a single live intrauterine gestation with ultrasound gestational age of 6 weeks and 1 day, estimated delivery date of 07/23/2022. No maternal adnexal mass or pelvic ascites. No evidence of torsion. Ultrasound of the appendix pending. Time: 22:09 Reevaluation #2: Ultrasound of the appendix unable to visualize appendix however no free fluid noted. Discussed this case with Dr. Chavira who recommends closely monitoring her symptoms at home for 24 hours and returning with new or worsening symptoms. At time of discharge patient appears comfortable, symptoms slightly improved. At this time patient will go home with strict return precautions. I do not suspect acute appendicitis on this patient based off of her presentation. Patient does not have an elevated white blood cell count. Likely constipation or gas is Dr. Chavez mentioned Time: 23:22 Medical Decision Making [facility] Narrative Medical decision making narrative: 191 26-year-old female presents with severe bilateral flank pain with radiation into abdomen, also reports fevers at home x1 day. Reports UTI symptoms about 2 weeks ago that resolved a week ago. Has not had an appointment with OBGYN however is followed by [facility]. Physical examination with right-sided CVA tenderness and right lower quadrant tenderness to palpation. Vital signs stable however slightly tachycardic. Concerns for UTI versus pyelo versus kidney stone. Will rule out ectopic , ovarian torsion, ovarian cyst rupture. Unlikely appendicitis however will try to obtain an ultrasound of right lower quadrant to rule this out. Plan at this time is urine, labs, imaging. Will give fluids Medical Records Medical records reviewed: Yes I reviewed the patient's medical records. Lab Data Lab results reviewed: Yes I reviewed the patient's lab results. Result diagrams: 11/28/21 20:01 11/28/21 20:01 Labs: Lab Results 11/28/21 11/28/21 11/28/21 Range/Units 19:28 19:50 20:01 WBC 10.3 (4.8-10.8) X10*3/uL RBC 4.60 (4.20-5.50) X10*6/uL Hgb 13.0 (12.0-16.0) g/dl Hct 39.8 (37.0-47.0) % MCV 86.5 (80.0-98.0) fL MCH 28.3 (27.0-33.0) pg MCHC 32.7 (31.0-35.0) g/dl RDW 13.0 (11.0-16.0) % Plt Count 200 (160-400) X10*3/uL MPV 11.0 (9.4-12.3) fL Immature Gran % (Auto) 0.3 (0.0-0.4) % Neut % (Auto) 78.9 H (45-73) % Lymph % (Auto) 14.3 L (20-40) % [place] % (Auto) 5.5 (2-11) % Eos % (Auto) 0.7 (0-4) % Baso % (Auto) 0.3 (0-2) % Lymph # (Auto) 1.5 (1.2-4.9) X10*3/uL [place] # (Auto) 0.6 (0.1-1.2) X10*3/uL Eos # (Auto) 0.1 (0.0-0.4) X10*3/uL Baso # (Auto) 0.0 (0.0-0.2) X10*3/uL Abs Immat Gran (auto) 0.03 (0.00-0.03) X10*3/uL Absolute Neuts (auto) 8.1 (2.0-8.3) x10*3/uL Absolute Nucleated RBC 0.000 (0.0-0.012) X10*3/uL Nucleated RBC % (auto) 0.0 (0.0-0.2) /100WBC Sodium (135-145) mmol/L Potassium (3.3-5.1) mmol/L Chloride (96-108) mmol/L Carbon Dioxide (22-29) mmol/L Anion Gap (12-20) BUN (9-16) mg/dL Creatinine (0.5-1.4) mg/dL Estim Creat Clear Calc Estimated GFR Random Glucose (60-115) mg/dL Calcium (8.4-10.2) mg/dL Total Bilirubin (0.0-1.0) mg/dL Direct Bilirubin (0.0-0.5) mg/dL AST (5-31) U/L ALT (0-31) U/L Alkaline Phosphatase (39-117) U/L Total Protein (6.5-8.0) g/dL Albumin (3.5-5.0) g/dL Lipase (8-78) U/L Beta HCG, Quant mIU/mL Urine Color Yellow Urine Appearance Clear Urine pH 6.0 (5.0-9.0) Ur Specific [place] 1.015 (1.005-1.025) Urine Protein Negative (Neg-Trace) mg/dL Urine Glucose (UA) Negative (Negative) mg/dL Urine Ketones 40 (Negative) mg/dL Urine Blood Negative (Negative) Urine Nitrite Negative (Negative) Ur Leukocyte Esterase Negative (Negative) COVID-19 (ANTHONY) Negative (Negative) COVID-19 Clin Com See Note 11/28/21 Range/Units 20:01 WBC (4.8-10.8) X10*3/uL RBC (4.20-5.50) X10*6/uL Hgb (12.0-16.0) g/dl Hct (37.0-47.0) % MCV (80.0-98.0) fL MCH (27.0-33.0) pg MCHC (31.0-35.0) g/dl RDW (11.0-16.0) % Plt Count (160-400) X10*3/uL MPV (9.4-12.3) fL Immature Gran % (Auto) (0.0-0.4) % Neut % (Auto) (45-73) % Lymph % (Auto) (20-40) % [place] % (Auto) (2-11) % Eos % (Auto) (0-4) % Baso % (Auto) (0-2) % Lymph # (Auto) (1.2-4.9) X10*3/uL [place] # (Auto) (0.1-1.2) X10*3/uL Eos # (Auto) (0.0-0.4) X10*3/uL Baso # (Auto) (0.0-0.2) X10*3/uL Abs Immat Gran (auto) (0.00-0.03) X10*3/uL Absolute Neuts (auto) (2.0-8.3) x10*3/uL Absolute Nucleated RBC (0.0-0.012) X10*3/uL Nucleated RBC % (auto) (0.0-0.2) /100WBC Sodium 136 (135-145) mmol/L Potassium 3.7 (3.3-5.1) mmol/L Chloride 103 (96-108) mmol/L Carbon Dioxide 23 (22-29) mmol/L Anion Gap 14 (12-20) BUN 9 (9-16) mg/dL Creatinine 0.69 (0.5-1.4) mg/dL Estim Creat Clear Calc 142.5 Estimated GFR > 60 Random Glucose 90 (60-115) mg/dL Calcium 9.2 (8.4-10.2) mg/dL Total Bilirubin 0.9 (0.0-1.0) mg/dL Direct Bilirubin 0.3 (0.0-0.5) mg/dL AST 25 D (5-31) U/L ALT 54 H (0-31) U/L Alkaline Phosphatase 71 (39-117) U/L Total Protein 6.8 (6.5-8.0) g/dL Albumin 4.1 (3.5-5.0) g/dL Lipase 10 (8-78) U/L Beta HCG, Quant 18017 mIU/mL Urine Color Urine Appearance Urine pH (5.0-9.0) Ur Specific [place] (1.005-1.025) Urine Protein (Neg-Trace) mg/dL Urine Glucose (UA) (Negative) mg/dL Urine Ketones (Negative) mg/dL Urine Blood (Negative) Urine Nitrite (Negative) Ur Leukocyte Esterase (Negative) COVID-19 (ANTHONY) (Negative) COVID-19 Clin Com Critical Care Time Critical Care Time Critical Care Time: No Discharge Plan Discharge Clinical Impression: Abdominal pain, Fatty liver, Acute flank pain Patient Disposition: Home, Self-Care Instructions: Non-Alcoholic Fatty Liver Disease (ED), Abdominal Pain (ED) Additional Instructions: Take your medications as prescribed. If you were prescribed antibiotics today, it is important that you take your medication to their entirety, do not skip any doses, do not finish them early. Follow-up with your primary care provider this week. Follow up with OBGYN as soon as possible Return to the emergency department with new or worsening symptoms. Such as feve rs, chills, chest pain, shortness of breath, nausea, vomiting, dizziness, headache, vision changes, lethargy, inability to eat, vaginal discharge, vaginal bleeding, changes in bowel habits. In case of emergency call 911 Please observe symptoms closely for 24 hours, however if symptoms worsen with in 24 hours you need to come in for re-evaluation. US/US abdomen complete IMPRESSION: 1.? Mild diffuse increased hepatic echotexture suggesting possible mild fatty infiltration/steatosis or hepatocellular disease. No liver lesion. 2.? Normal gallbladder. No evidence of cholelithiasis or cholecystitis. 3.? No biliary ductal dilation. 4.? Slight fullness of the left renal pelvis. No significant hydronephrosis. ? US/US pelvic ovarian doppler IMPRESSION: 1. Single live intrauterine gestation with ultrasound gestational age of 6 weeks 1 day +/- 4 days. ? 2. Estimated date of delivery is 07/23/2022 +/- 4 days. ? 3. No maternal adnexal mass or pelvic ascites. ? 4. No sonographic evidence of active right ovarian torsion. Although Doppler assessment of the left ovary could not be performed given its location, there is no convincing sonographic evidence to suggest active left ovarian torsion. No adnexal mass. US/US appendix IMPRESSION: Right lower quadrant (appendix) sonographic exam: *Indeterminate examination. The appendix is not visualized. No right lower quadrant free intraperitoneal fluid noted. This examination is indeterminate with regards to possible acute appendicitis.? Prescriptions: No Action codeine-guaifenesin [Guaifenesin AC] 10-100 mg/5 mL liquid 10 ml PO Q4-6H PRN (Reason: cold symptoms) 3 Days Qty: 180 0RF Rx Instructions: side effect is drowsiness. Do not take at work or while driving. dexamethasone [Decadron] 6 mg tablet 6 mg PO DAILY 10 Days Qty: 10 0RF Referrals: Stefania Starr [Emergency Nurse] - 2 days Stand Alone Forms: Work/School Release
[2021-11-28 19:34] LABS: Appearance Urine Clear; Color Urine Yellow; Glucose Urine UA Negative (Negative); Leukocyte Esterase Urine Negative (Negative); Nitrite Urine Negative (Negative); Specific Gravity - Urine 1.015 (1.005-1.025); Urine Blood Negative (Negative); Urine Ketones 40 mg/dL (Negative); Urine Protein Negative (Neg-Trace)
[2021-11-28] MEDS: 0.9 % Sodium Chloride 1,000 ML 999 ML IV (20:01)
[2021-11-28 20:05] LABS: MANUAL DIFF FLAG NO
[2021-11-28 20:06] LABS: Basophils Percent Auto 0.3 % (0-2); Eosinophils Absolute Auto 0.1 X10*3/uL (0.0-0.4); Eosinophils Percent Auto 0.7 % (0-4); Hematocrit 39.8 % (37.0-47.0); Imm Gran Abs Auto 0.03 X10*3/uL (0.00-0.03); Imm Gran Pct Auto 0.3 % (0.0-0.4); Lymphocytes Absolute Auto 1.5 X10*3/uL (1.2-4.9); Lymphocytes Percent Auto 14.3 % (20-40); Mean Corpuscular HGB Conc 32.7 g/dl (31.0-35.0); Mean Corpuscular Hemoglobin 28.3 pg (27.0-33.0); Mean Corpuscular Volume 86.5 fL (80.0-98.0); Monocytes Absolute Auto 0.6 X10*3/uL (0.1-1.2); Monocytes Percent Auto 5.5 % (2-11); Neutrophils Absolute Auto 8.1 x10*3/uL (2.0-8.3); Neutrophils Percent Auto 78.9 % (45-73); Platelet Count 200 X10*3/uL (160-400); White Blood Count 10.3 X10*3/uL (4.8-10.8)
[2021-11-28 20:10] LABS: COVID-19 Test Negative (Negative)
[2021-11-28 20:25] LABS: Alanine Aminotransferase 54 U/L (0-31); Albumin Level 4.1 g/dL (3.5-5.0); Alkaline Phosphatase 71 U/L (39-117); Anion Gap 14 (12-20); Aspartate Amino Transferase 25 U/L (5-31); Bilirubin Direct 0.3 mg/dL (0.0-0.5); Bilirubin Total 0.9 mg/dL (0.0-1.0); Blood Urea Nitrogen 9 mg/dL (9-16); Calcium 9.2 mg/dL (8.4-10.2); Carbon Dioxide 23 mmol/L (22-29); Chloride 103 mmol/L (96-108); Creatinine Clr Calc Pharmacy 142.5; Estimated Glomerular Filt Rate > 60; Glucose Random 90 mg/dL (60-115); Lipase 10 U/L (8-78); Potassium 3.7 mmol/L (3.3-5.1); Sodium 136 mmol/L (135-145); Total Protein 6.8 g/dL (6.5-8.0)
[2021-11-28 20:47] VITALS: BP 119/69; PULSE 92; RESP 12; TEMP 36.9; O2SAT 100
[2021-11-28 21:03] LABS: HCG Quantitative 32998 mIU/mL
[2021-11-28 23:16] VITALS: BP 117/67; PULSE 109; RESP 14; TEMP 37.2; O2SAT 98
[2021-11-28 23:19] LABS: Influenza A PCR NEGATIVE (Negative); Influenza B PCR NEGATIVE (Negative); Resp Syncy Virus RNA Qual PCR NEGATIVE (Negative); SARS COV2 PCR INHOUSE NEGATIVE (Negative)
--- NOTE | 2021-11-28 23:29 | PC.NURSE ---
Discharge instructions reviewed with pt. Pt verbalizes understanding.
== END 2021-11-28 23:30 | disposition home or self-care (01) ==
PROVIDERS: Physician Assistant; Emergency Provider Student in an Organized Health Care Education/Training Program; PCP Internal Medicine
DX: O26.891 Other specified pregnancy related conditions, first trimester (principal); R10.9 Unspecified abdominal pain; O26.611 Liver and biliary tract disorders in pregnancy, first trimester; K76.0 Fatty (change of) liver, not elsewhere classified; Z3A.01 Less than 8 weeks gestation of pregnancy; Z20.822 Contact with and (suspected) exposure to COVID-19
CPT/HCPCS: 0241U; 76700; 76705; 76801; 76817; 80053; 81003; 82248; 83690; 84702; 85025; 87635; 93975; 96360; 99284

== ENCOUNTER 2021-12-24 09:27 | Outpatient (REF) | payer OTHER, SELFPAY ==
[2021-12-24 12:04] LABS: MANUAL DIFF FLAG NO
[2021-12-24 14:19] LABS: Basophils Percent Auto 0.3 % (0-2); Eosinophils Absolute Auto 0.1 X10*3/uL (0.0-0.4); Eosinophils Percent Auto 1.5 % (0-4); Hematocrit 39.2 % (37.0-47.0); Hemoglobin 12.5 g/dl (12.0-16.0); Imm Gran Abs Auto 0.04 X10*3/uL (0.00-0.03); Imm Gran Pct Auto 0.5 % (0.0-0.4); Lymphocytes Absolute Auto 1.9 X10*3/uL (1.2-4.9); Lymphocytes Percent Auto 22.2 % (20-40); Mean Corpuscular HGB Conc 31.9 g/dl (31.0-35.0); Mean Corpuscular Hemoglobin 28.2 pg (27.0-33.0); Mean Corpuscular Volume 88.5 fL (80.0-98.0); Mean Platelet Volume 11.7 fL (9.4-12.3); Monocytes Absolute Auto 0.6 X10*3/uL (0.1-1.2); Monocytes Percent Auto 6.5 % (2-11); Platelet Count 225 X10*3/uL (160-400); Red Blood Count 4.43 X10*6/uL (4.20-5.50); Red Cell Distribution Width 13.2 % (11.0-16.0); White Blood Count 8.7 X10*3/uL (4.8-10.8)
[2021-12-24 14:25] LABS: Glucose 1 Hour PP 50gm Dose 87 mg/dL (60-140)
[2021-12-24 14:31] LABS: Alanine Aminotransferase 61 U/L (0-31); Albumin Level 3.8 g/dL (3.5-5.0); Alkaline Phosphatase 63 U/L (39-117); Aspartate Amino Transferase 31 U/L (5-31); Bilirubin Direct 0.2 mg/dL (0.0-0.5); Bilirubin Total 0.4 mg/dL (0.0-1.0); Total Protein 6.4 g/dL (6.5-8.0)
[2021-12-24 16:10] LABS: Estimated Average Glucose 100 mg/dL; Hemoglobin A1c % 5.1 %
[2021-12-24 18:53] LABS: Amphetamine Screen Urine Not Detected (Not Detect); Barbiturates, Urine Not Detected (Not Detect); Benzodiazepines Screen Urine Not Detected (Not Detect); Cannabinoid Screen Urine Not Detected (Not Detect); Cocaine Screen Urine Not Detected (Not Detect); Fentanyl, urine Not Detected (Not Detect); Opiate Screen Urine Not Detected (Not Detect); Phencyclidine Screen Urine Not Detected (Not Detect)
[2021-12-25 12:06] LABS: HBsAGNum1 0.25 S/CO (0.00-0.99); HIV AB/AG Nonreactive (Nonreactive); Hepatitis B Surface Antigen Negative (Negative)
[2021-12-26 01:06] LABS: Rubella IgG Antibody 2.16 Index
[2021-12-26 02:02] LABS: Rubella IgM Antibody <20.00 AU/mL
[2021-12-27 12:12] LABS: HCV Log PCR <1.18 NOT DETECTED Log IU/mL (NOT DETECTED); HepC Viral Load <15 NOT DETECTED IU/mL (NOT DETECTED)
[2021-12-28 17:12] LABS: Treponema pallidum Ab FTA ABS Nonreactive (Nonreactive)
[2022-01-02 08:39] LABS: Codeine, Ur NEGATIVE; Hydrocodone, Ur NEGATIVE; Hydromorphone, Ur NEGATIVE; Morphine, Ur NEGATIVE; Norhydrocodone, Ur NEGATIVE; Oxycodone, Ur NEGATIVE; Oxymorphone, Ur NEGATIVE
[2022-01-02 08:40] LABS: Noroxycodone, Ur NEGATIVE
[2022-01-05 08:53] LABS: Fentanyl, Ur NEGATIVE
[2022-01-05 08:54] LABS: Norfentanyl, Ur NEGATIVE
== END 2021-12-24 09:28 | disposition home or self-care (01) ==
LOC: HO.LAB 09:27
PROVIDERS: Visit Provider Registered Nurse
DX: O99.210 Obesity complicating pregnancy, unspecified trimester (principal); O26.899 Other specified pregnancy related conditions, unspecified trimester; K76.0 Fatty (change of) liver, not elsewhere classified
CPT/HCPCS: 80076; 80307; 80354; 80364; 80365; 82950; 83036; 85025; 86762; 86780; 86787; 86850; 86900; 87086; 87340; 87389; 87522

== ENCOUNTER 2022-01-06 18:48 | Outpatient (REF) | payer OTHER, SELFPAY ==
[2022-01-06 19:38] LABS: Influenza A PCR NEGATIVE (Negative); Influenza B PCR NEGATIVE (Negative); Resp Syncy Virus RNA Qual PCR NEGATIVE (Negative); SARS COV2 PCR INHOUSE NEGATIVE (Negative)
== END 2022-01-06 18:49 | disposition home or self-care (01) ==
LOC: HO.LAB 18:48
PROVIDERS: Visit Provider Physician Assistant
DX: Z20.822 Contact with and (suspected) exposure to COVID-19 (principal)
CPT/HCPCS: 0241U; C9803

== ENCOUNTER 2022-02-23 19:16 | Emergency (ER) | payer OTHER, SELFPAY ==
--- NOTE | 2022-02-23 19:31 | ED.GENADULT ---
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 vomiting started just prior to arrival today vomited 5- 6 times noticed to have tachycardia 121 beats per minute no vaginal bleeding no significant abdominal pain no fever chills Related Data Previous Rx's Medication Instructions Recorded codeine 10 mg-guaifenesin 100 mg/5 10 ml PO Q4-6H PRN cold symptoms 3 11/01/20 mL oral liquid (Guaifenesin AC) days #180 mL dexamethasone 6 mg tablet 6 mg PO DAILY 10 days #10 tabs 11/01/20 (Decadron) Allergies Allergy/AdvReac Type Severity Reaction Status Date / Time No Known Allergies Allergy Verified 11/01/20 14:55 [No Known Allergies*] Review of Systems Review of Systems: Yes all other systems are reviewed and are negative PMFSH Past Medical History Medical History Asthma Cystitis Elevated LFTs Pelvic pressure in female Surgical History [place] teeth removed Family History Family History Paternal Grandmother Diabetes Paternal Aunt Liver disease Social History Social History Alcohol intake: former Patient Tobacco Use Status: Former Tobacco user Tobacco use type: Cigarette Advance Directives: No Advance Directives Information Provided: No Gender identity: Female Physical Exam ED Vital Signs: Vital Signs - 24 hr 02/23/22 19:44 02/23/22 21:10 Temperature 97.7 F 98.2 F Pulse Rate 124 H 104 H Respiratory Rate 18 18 Blood Pressure 117/76 103/72 Pulse Oximetry 100 100 Oxygen Delivery Method Room Air Room Air BMI result Body Mass Index 38.0 Appearance: Alert. Oriented X3. No acute distress. Eyes: PERRLA, No Nystagmus ENT: Pharynx normal. Oral Mucosa moist Neck: Normal inspection. Neck supple. CVS: Sinus tachycardia number of [place] Pulses normal. Respiratory: No respiratory distress. Equal air entry bilateral, no wheezing/rales/rhonchi Abdomen: Soft and nontender. Bowel sounds are present, gravid uterus no CVA tenderness Skin: Skin warm and dry. Normal skin color. Normal skin turgor. Extremities: No lower extremity edema. No calf tenderness Neuro: Oriented X 3. No motor deficit. Medications Administered Discontinued Medications Generic Name Dose Route Start Last Admin Trade Name Freq PRN Reason Stop Dose Admin Sodium Chloride 1,000 mls @ 999 mls/hr 02/23/22 19:37 02/23/22 21:08 Ns IV 02/23/22 20:37 Infused .Q1H1M ONE Infusion Sodium Chloride 1,000 mls @ 999 mls/hr 02/23/22 20:59 02/23/22 21:09 Ns IV 02/23/22 21:59 999 mls/hr .Q1H1M ONE Administration Ondansetron HCl 4 mg 02/23/22 20:59 02/23/22 21:08 Ondansetron Hcl 4 Mg/2 Ml Vial IVPUSH 02/23/22 21:00 4 mg ONCE ONE Administration Medical Decision Making Medical Decision Making [facility] Narrative: Patient 19 weeks came for nausea vomiting noticed her tachycardia which improved after 2 L of IV fluid workup otherwise negative heart sounds are 140 , will discharge patient home Lab Data [facility] Lab Attestation statement: I reviewed the patient's lab results. 02/23/22 19:55 02/23/22 19:55 Labs: Lab Results 02/23/22 02/23/22 02/23/22 Range/Units 19:55 19:55 19:55 WBC 13.0 H (4.8-10.8) X10*3/uL RBC 4.13 L (4.20-5.50) X10*6/uL Hgb 11.7 L (12.0-16.0) g/dl Hct 36.3 L (37.0-47.0) % MCV 87.9 (80.0-98.0) fL MCH 28.3 (27.0-33.0) pg MCHC 32.2 (31.0-35.0) g/dl RDW 13.6 (11.0-16.0) % Plt Count 214 (160-400) X10*3/uL MPV 11.5 (9.4-12.3) fL Immature Gran % (Auto) 1.4 H (0.0-0.4) % Neut % (Auto) 71.7 (45-73) % Lymph % (Auto) 19.5 L (20-40) % [place] % (Auto) 5.9 (2-11) % Eos % (Auto) 1.1 (0-4) % Baso % (Auto) 0.4 (0-2) % Lymph # (Auto) 2.5 (1.2-4.9) X10*3/uL [place] # (Auto) 0.8 (0.1-1.2) X10*3/uL Eos # (Auto) 0.1 (0.0-0.4) X10*3/uL Baso # (Auto) 0.1 (0.0-0.2) X10*3/uL Abs Immat Gran (auto) 0.18 H (0.00-0.03) X10*3/uL Absolute Neuts (auto) 9.3 H (2.0-8.3) x10*3/uL Absolute Nucleated RBC 0.000 (0.0-0.012) X10*3/uL Nucleated RBC % (auto) 0.0 (0.0-0.2) /100WBC Sodium 139 (135-145) mmol/L Potassium 4.0 (3.3-5.1) mmol/L Chloride 105 (96-108) mmol/L Carbon Dioxide 23 (22-29) mmol/L Anion Gap 15 (12-20) BUN 7 L (9-16) mg/dL Creatinine 0.71 (0.5-1.4) mg/dL Estim Creat Clear Calc 135.8 Estimated GFR > 60 Random Glucose 109 (60-115) mg/dL Calcium 9.6 (8.4-10.2) mg/dL Magnesium 1.9 (1.6-2.6) mg/dL Total Bilirubin 0.2 (0.0-1.0) mg/dL AST 35 H (5-31) U/L ALT 55 H (0-31) U/L Alkaline Phosphatase 72 (39-117) U/L Total Protein 6.4 L (6.5-8.0) g/dL Albumin 3.7 (3.5-5.0) g/dL TSH 1.32 (0.32-4.0) uIU/mL Urine Color Urine Appearance Urine pH (5.0-9.0) Ur Specific [place] (1.005-1.025) Urine Protein (Neg-Trace) mg/dL Urine Glucose (UA) (Negative) mg/dL Urine Ketones (Negative) mg/dL Urine Blood (Negative) Urine Nitrite (Negative) Ur Leukocyte Esterase (Negative) COVID-19 (ANTHONY) Negative (Negative) COVID-19 Clin Com See Note Influenza Type A (IMANI) (Negative) Influenza Type B (IMANI) (Negative) Influenza A & B Note 02/23/22 02/23/22 Range/Units 19:55 20:02 WBC (4.8-10.8) X10*3/uL RBC (4.20-5.50) X10*6/uL Hgb (12.0-16.0) g/dl Hct (37.0-47.0) % MCV (80.0-98.0) fL MCH (27.0-33.0) pg MCHC (31.0-35.0) g/dl RDW (11.0-16.0) % Plt Count (160-400) X10*3/uL MPV (9.4-12.3) fL Immature Gran % (Auto) (0.0-0.4) % Neut % (Auto) (45-73) % Lymph % (Auto) (20-40) % [place] % (Auto) (2-11) % Eos % (Auto) (0-4) % Baso % (Auto) (0-2) % Lymph # (Auto) (1.2-4.9) X10*3/uL [place] # (Auto) (0.1-1.2) X10*3/uL Eos # (Auto) (0.0-0.4) X10*3/uL Baso # (Auto) (0.0-0.2) X10*3/uL Abs Immat Gran (auto) (0.00-0.03) X10*3/uL Absolute Neuts (auto) (2.0-8.3) x10*3/uL Absolute Nucleated RBC (0.0-0.012) X10*3/uL Nucleated RBC % (auto) (0.0-0.2) /100WBC Sodium (135-145) mmol/L Potassium (3.3-5.1) mmol/L Chloride (96-108) mmol/L Carbon Dioxide (22-29) mmol/L Anion Gap (12-20) BUN (9-16) mg/dL Creatinine (0.5-1.4) mg/dL Estim Creat Clear Calc Estimated GFR Random Glucose (60-115) mg/dL Calcium (8.4-10.2) mg/dL Magnesium (1.6-2.6) mg/dL Total Bilirubin (0.0-1.0) mg/dL AST (5-31) U/L ALT (0-31) U/L Alkaline Phosphatase (39-117) U/L Total Protein (6.5-8.0) g/dL Albumin (3.5-5.0) g/dL TSH (0.32-4.0) uIU/mL Urine Color Yellow Urine Appearance Clear Urine pH 6.5 (5.0-9.0) Ur Specific [place] <= 1.005 (1.005-1.025) Urine Protein Negative (Neg-Trace) mg/dL Urine Glucose (UA) Negative (Negative) mg/dL Urine Ketones Negative (Negative) mg/dL Urine Blood Negative (Negative) Urine Nitrite Negative (Negative) Ur Leukocyte Esterase Negative (Negative) COVID-19 (ANTHONY) (Negative) COVID-19 Clin Com Influenza Type A (IMANI) Negative (Negative) Influenza Type B (IMANI) Negative (Negative) Influenza A & B Note See Note Independent Interpretation I performed an independent interpretation of an: EKG Interpretation: Sinus rhythm heart rate 95 beats per minute no acute ST changes no acute ischemia normal intervals normal axis Discharge Plan Discharge Clinical Impression: Acute nausea with nonbilious vomiting, related condition in second trimester Patient Disposition: Home, Self-Care Instructions: Acute Nausea and Vomiting (ED), at 19 to 22 Weeks (ED) Additional Instructions: Drink plenty of fluids Follow-up with your OBG Prescriptions: No Action codeine-guaifenesin [Guaifenesin AC] 10-100 mg/5 mL liquid 10 ml PO Q4-6H PRN (Reason: cold symptoms) 3 Days Qty: 180 0RF Rx Instructions: side effect is drowsiness. Do not take at work or while driving. dexamethasone [Decadron] 6 mg tablet 6 mg PO DAILY 10 Days Qty: 10 0RF Interventions: ED Discharge Assessment Last Done: 02/23/22 23:29 Discharge Date/Time: 02/23/22 23:30
--- NOTE | 2022-02-23 19:37 | ECG_ITS ---
Test Reason : SINUS TACHYCARDIA Blood Pressure : / mmHG Vent. Rate : 095 BPM Atrial Rate : 095 BPM P-R Int : 152 ms QRS Dur : 084 ms QT Int : 348 ms P-R-T Axes : 045 011 006 degrees QTc Int : 437 ms Normal sinus rhythm Minimal voltage criteria for LVH, may be normal variant ( R in aVL ) Borderline ECG When compared with ECG of 01-NOV-2020 15:31, No significant change was found Referred By: Gary Nielson Electronically Signed By:CAPRICE DAVISON MD
[2022-02-23 19:44] VITALS: BP 117/76; PULSE 124; RESP 18; TEMP 36.5; O2SAT 100; BMI 38.0
[2022-02-23] MEDS: 0.9 % Sodium Chloride 1,000 ML 999 ML IV ×2 (19:53→21:09)
[2022-02-23 20:08] LABS: MANUAL DIFF FLAG NO
[2022-02-23 20:12] LABS: Appearance Urine Clear; Color Urine Yellow; Glucose Urine UA Negative (Negative); Leukocyte Esterase Urine Negative (Negative); Nitrite Urine Negative (Negative); PH 6.5 (5.0-9.0); Specific Gravity - Urine <= 1.005 (1.005-1.025); Urine Blood Negative (Negative); Urine Ketones Negative (Negative); Urine Protein Negative (Neg-Trace)
[2022-02-23 20:12] LABS: Basophils Absolute Auto 0.1 X10*3/uL (0.0-0.2); Basophils Percent Auto 0.4 % (0-2); Eosinophils Absolute Auto 0.1 X10*3/uL (0.0-0.4); Eosinophils Percent Auto 1.1 % (0-4); Hematocrit 36.3 % (37.0-47.0); Hemoglobin 11.7 g/dl (12.0-16.0); Imm Gran Abs Auto 0.18 X10*3/uL (0.00-0.03); Imm Gran Pct Auto 1.4 % (0.0-0.4); Lymphocytes Absolute Auto 2.5 X10*3/uL (1.2-4.9); Lymphocytes Percent Auto 19.5 % (20-40); Mean Corpuscular HGB Conc 32.2 g/dl (31.0-35.0); Mean Corpuscular Hemoglobin 28.3 pg (27.0-33.0); Mean Corpuscular Volume 87.9 fL (80.0-98.0); Mean Platelet Volume 11.5 fL (9.4-12.3); Monocytes Absolute Auto 0.8 X10*3/uL (0.1-1.2); Monocytes Percent Auto 5.9 % (2-11); Neutrophils Absolute Auto 9.3 x10*3/uL (2.0-8.3); Neutrophils Percent Auto 71.7 % (45-73); Platelet Count 214 X10*3/uL (160-400); Red Blood Count 4.13 X10*6/uL (4.20-5.50); Red Cell Distribution Width 13.6 % (11.0-16.0)
[2022-02-23 20:25] LABS: COVID-19 Test Negative (Negative); IDNOW Serial# 16C4AD1C
[2022-02-23 20:29] LABS: IDNOW Serial# BCCEAD1C; Influenza A Negative (Negative); Influenza B2 Negative (Negative)
[2022-02-23 20:34] LABS: Alanine Aminotransferase 55 U/L (0-31); Albumin Level 3.7 g/dL (3.5-5.0); Alkaline Phosphatase 72 U/L (39-117); Anion Gap 15 (12-20); Aspartate Amino Transferase 35 U/L (5-31); Bilirubin Total 0.2 mg/dL (0.0-1.0); Blood Urea Nitrogen 7 mg/dL (9-16); Calcium 9.6 mg/dL (8.4-10.2); Carbon Dioxide 23 mmol/L (22-29); Chloride 105 mmol/L (96-108); Creatinine Clr Calc Pharmacy 135.8; Estimated Glomerular Filt Rate > 60; Glucose Random 109 mg/dL (60-115); Magnesium 1.9 mg/dL (1.6-2.6); Sodium 139 mmol/L (135-145); Total Protein 6.4 g/dL (6.5-8.0)
[2022-02-23 20:51] LABS: Thyroid Stimulating Hormone 1.32 uIU/mL (0.32-4.0)
[2022-02-23] MEDS: ondansetron HCL 4 MG/2 ML VIAL IVPUSH (21:08)
[2022-02-23 21:10] VITALS: BP 103/72; PULSE 104; RESP 18; TEMP 36.8; O2SAT 100
--- NOTE | 2022-02-23 21:55 | PC.NURSE ---
Patient still nauseas after zofran and 1.5l of normal saline. heart rate jumps to 120's when she stands.
== END 2022-02-23 23:30 | disposition home or self-care (01) ==
PROVIDERS: Emergency Provider Internal Medicine; PCP Internal Medicine
DX: O21.9 Vomiting of pregnancy, unspecified (principal); Z3A.19 19 weeks gestation of pregnancy; O99.412 Diseases of the circulatory system complicating pregnancy, second trimester; R00.0 Tachycardia, unspecified; Z20.822 Contact with and (suspected) exposure to COVID-19
CPT/HCPCS: 80053; 81003; 83735; 84443; 85025; 87502; 87635; 93005; 96361; 96374; 99284; J2405

== ENCOUNTER 2022-03-19 14:44 | Outpatient (REF) | payer OTHER, SELFPAY | END 2022-03-19 14:45 | disposition home or self-care (01) | LOC: HO.LAB 14:44 | PROVIDERS: PCP Internal Medicine; Visit Provider Registered Nurse | DX: Z34.02 Encounter for supervision of normal first pregnancy, second trimester (principal) | CPT/HCPCS: 86850; 86900; 86901 ==

== ENCOUNTER 2022-04-04 18:34 | Emergency (ER) | payer OTHER, SELFPAY ==
--- NOTE | ~2022-04-04 | XR_ITS ---
EXAMINATION: XR CHEST CLINICAL INFORMATION: Shortness of breath COMPARISON: 11/01/2020 TECHNIQUE: 2 views of the chest were obtained. FINDINGS: No significant abnormality is noted involving the heart, lungs, mediastinum, bony thorax or soft tissues. XR/XR chest 2V IMPRESSION: Unremarkable examination.
[2022-04-04 18:37] VITALS: BP 123/69; PULSE 130; RESP 22; TEMP 36.4; O2SAT 100; BMI 38.9
--- NOTE | 2022-04-04 19:13 | ED_ITS ---
HPI - Asthma General Chief Complaint: Asthma Stated Complaint: Asthma/ Time Seen by Provider: 04/04/22 19:13 Source: patient Mode of arrival: ambulatory Limitations: no limitations History of Present Illness HPI Narrative: 26-year-old female with history of asthma, 25 weeks who presents emergency department for evaluation of nonproductive cough, shortness of breath and chest tightness since yesterday. The patient states that she has been using her albuterol nebulizer 3 times a day and albuterol inhaler 2 times a day without relief of her symptoms. She states she has had a cough which is nonproductive. She states she is having tightness in the center of her chest which is worse with breathing and with coughing. She feels short of breath at rest and short of breath with exertion. She denied fever, chills, rhinorrhea, sore throat, nausea, vomiting, diarrhea, abdominal pain, frequency, urgency or dysuria. The patient states that she is 25 weeks , she is going to deliver her baby at [facility]. She has gotten care and is taking vitamins. She states that she is not having abdominal pain, vaginal bleeding or vaginal discharge. She states that she is feeling good movement. She also checks her heart tones frequently and she states that they were normal. Related Data Previous Rx's Medication Instructions Recorded codeine 10 mg-guaifenesin 100 mg/5 10 ml PO Q4-6H PRN cold symptoms 3 11/01/20 mL oral liquid (Guaifenesin AC) days #180 mL dexamethasone 6 mg tablet 6 mg PO DAILY 10 days #10 tabs 11/01/20 (Decadron) albuterol sulfate 90 mcg/actuation 2 puff inhalation Q4-6H PRN 04/04/22 aerosol inhaler (ProAir HFA) shortness of breath or wheezing #8.5 grams fluticasone 250 mcg-salmeterol 50 1 inh inhalation Q12H #60 ea 04/04/22 mcg/dose blistr powdr for inhalation (Advair Diskus) prednisone 20 mg tablet 60 mg PO DAILY 5 days #15 tabs 04/04/22 Allergies Allergy/AdvReac Type Severity Reaction Status Date / Time No Known Allergies Allergy Verified 11/01/20 14:55 [No Known Allergies*] Review of Systems Review of Systems: Yes all other systems are reviewed and are negative [facility] Past Medical History [facility] Narrative: Past medical history: Asthma, 25 weeks . 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 Medical History Asthma Cystitis Elevated LFTs Pelvic pressure in female Surgical History [place] teeth removed Family History Family History Paternal Grandmother Diabetes Paternal Aunt Liver disease Social History Social History Alcohol intake: former Patient Tobacco Use Status: Former Tobacco user Tobacco use type: Cigarette Advance Directives: No Advance Directives Information Provided: Yes Gender identity: Female Physical Exam Vital Signs: Vital Signs: Last Vital Signs Temp 97.5 F 04/04/22 18:37 Pulse 143 H 04/04/22 19:57 Resp 18 04/04/22 19:57 BP 123/69 04/04/22 18:37 Pulse Ox 96 04/04/22 19:57 O2 Del Method 04/04/22 19:57 BMI result Body Mass Index 38.9 Const: General: cooperative and no acute distress Orientation/consciousness: oriented to person and oriented to place Limitations: no limitations HEENT: Head: Yes normal to inspection, Yes normocephalic and Yes atraumatic Ears: external ears normal General nose exam: Normal external nose present Face and sinus: Yes normal facial exam Mouth: Normal oral and palatal mucosa present Throat: Yes posterior oropharynx normal Eyes: General: appearance normal, both eyes and all related structures Pupils: Equal, round and reactive pupils present Neck: Neck: Yes normal visual inspection, Yes no lymphadenopathy, Yes trachea midline and Yes supple Chest: Chest palpation & inspection: normal inspection of the chest and normal palpation of entire chest wall Resp: Other: Patient is tachypneic but is not using accessory muscles to breathe, patient has diffuse rhonchi with wheezing at the end of expiration, no rales. Cardio: Rate: regular rate Rhythm: regular rhythm Heart sounds: S1 normal heart sound present, S2 normal heart sound present and no murmurs GI: Other: Patient's abdomen is gravid Inspection: Yes normal to inspection Palpation (GI): Soft to palpation, nontender and no guarding Auscultation: normal bowel sounds Skin: General skin exam: no rashes or lesions noted Neuro: General: oriented to person and oriented to place Cranial nerves: Yes Equal, round and reactive pupils present Cognition (Neuro): normal cognition Motor exam (neuro): 5/5 motor strength present throughout Extrem: General: Yes normal to inspection Psych: Appearance: grossly normal Speech and movement: Normal speech and movement present Affect: normal affect Attitude: cooperative Medications Administered Discontinued Medications Generic Name Dose Route Start Last Admin Trade Name Freq PRN Reason Stop Dose Admin Albuterol Sulfate 5 mg 04/04/22 19:14 04/04/22 19:21 Albuterol Sulfate (0.083%) 2.5 Mg/3 Ml Vial.Neb INHALE 04/04/22 19:15 5 mg ONCE ONE Administration Methylprednisolone Sodium Succinate 125 mg 04/04/22 19:21 04/04/22 19:50 Methylprednisolone Sod Succ 125 Mg/2 Ml Vial IVPUSH 04/04/22 19:22 125 mg ONCE ONE Administration Medical Decision Making Medical Decision Making MDM Narrative: 26-year-old female history of asthma, 25 weeks who presents emergency department for evaluation of shortness of breath, non productive cough, chest pain times 2 days. Patient has been using her albuterol nebulizer and albuterol inhaler with no relief for symptoms. Patient's vital signs revealed tachycardia with a heart rate of 130 this is most likely secondary to the albuterol she has been using, she also has an elevated respiratory rate of 22. Blood pressure, temperature and O2 saturation were normal. Patient's lung exam did reveal diffuse rhonchi with wheezing at the end of expiration. I ordered laboratory evaluation to include CBC, CMP, urinalysis, COVID-19, influenza and RSV. I will obtain a two view chest x-ray on her. Patient was ordered to get an albuterol nebulizer 5 mg and Solu-Medrol 125 mg IV. 2052: My independent interpretation patient's laboratory evaluation is as follows: Mild anemia with an H&H of 10 and 32.6. Elevated AST and ALT 40 and 41. Elevated glucose 117. COVID-19, influenza and RSV were negative. Chest x- ray was unremarkable. Patient is feeling better after the above treatment. The patient will be discharged home with a short pulse dose course of prednisone 60 mg once a day x5 days. She was also given a prescription for an Advair inhaler to use twice a day with her albuterol inhaler. She was given printed and verbal instructions and discharged. Differential Diagnosis Differential diagnosis includes was not limited to pneumonia, viral syndrome, RSV, COVID, influenza, bronchitis, asthma exacerbation Lab Data [facility] Lab Attestation statement: I reviewed the patient's lab results. Please see [facility] for my discussion 04/04/22 19:33 04/04/22 19:33 Labs: Lab Results 04/04/22 04/04/22 04/04/22 Range/Units 19:33 19:33 19:51 WBC 11.4 H (4.8-10.8) X10*3/uL RBC 3.68 L (4.20-5.50) X10*6/uL Hgb 10.6 L (12.0-16.0) g/dl Hct 32.6 L (37.0-47.0) % MCV 88.6 (80.0-98.0) fL MCH 28.8 (27.0-33.0) pg MCHC 32.5 (31.0-35.0) g/dl RDW 14.2 (11.0-16.0) % Plt Count 201 (160-400) X10*3/uL MPV 11.6 (9.4-12.3) fL Immature Gran % (Auto) 1.9 H (0.0-0.4) % Neut % (Auto) 78.1 H (45-73) % Lymph % (Auto) 11.3 L (20-40) % [place] % (Auto) 6.8 (2-11) % Eos % (Auto) 1.5 (0-4) % Baso % (Auto) 0.4 (0-2) % Lymph # (Auto) 1.3 (1.2-4.9) X10*3/uL [place] # (Auto) 0.8 (0.1-1.2) X10*3/uL Eos # (Auto) 0.2 (0.0-0.4) X10*3/uL Baso # (Auto) 0.0 (0.0-0.2) X10*3/uL Abs Immat Gran (auto) 0.22 H (0.00-0.03) X10*3/uL Absolute Neuts (auto) 8.9 H (2.0-8.3) x10*3/uL Absolute Nucleated RBC 0.000 (0.0-0.012) X10*3/uL Nucleated RBC % (auto) 0.0 (0.0-0.2) /100WBC Sodium 137 (135-145) mmol/L Potassium 3.9 (3.3-5.1) mmol/L Chloride 108 (96-108) mmol/L Carbon Dioxide 20 L (22-29) mmol/L Anion Gap 13 (12-20) BUN 7 L (9-16) mg/dL Creatinine 0.61 (0.5-1.4) mg/dL Estim Creat Clear Calc 160.1 Estimated GFR > 60 Random Glucose 117 H (60-115) mg/dL Calcium 8.5 D (8.4-10.2) mg/dL Total Bilirubin 0.5 (0.0-1.0) mg/dL AST 40 H (5-31) U/L ALT 41 H (0-31) U/L Alkaline Phosphatase 69 (39-117) U/L Total Protein 6.0 L (6.5-8.0) g/dL Albumin 3.5 (3.5-5.0) g/dL Influenza Type A (PCR) NEGATIVE (Negative) Influenza Type B (PCR) NEGATIVE (Negative) RSV RNA Qual (PCR) NEGATIVE (Negative) SARS-CoV-2 RNA (RT-PCR) NEGATIVE (Negative) Independent Interpretation I performed an independent interpretation of an: Plain X-Ray Interpretation: My independent interpretation patient's two view chest x-ray is as follows: No acute disease. Radiology Impression Discussion of test interpretation with radiology: I have reviewed the rad iologist's reading. Radiologist Impression: XR chest 2V IMPRESSION: Unremarkable examination. Dictated By:Jose Mahan MDSigned By:<Electronically signed by Jose Mahan MD in OV>04/04/222015 Discharge Plan Discharge Clinical Impression: Asthma exacerbation Qualifiers: Asthma severity: moderate Asthma persistence: unspecified Qualified Code(s): J45.901 - Unspecified asthma with (acute) exacerbation Qualifiers: Weeks of gestation: 25 weeks Qualified Code(s): Z3A.25 - 25 weeks gestation of Patient Disposition: Home, Self-Care Instructions: Asthma (ED) Additional Instructions: Your chest x-ray revealed no evidence of pneumonia. Your laboratory evaluation was normal. Your COVID-19, RSV and influenza tests were negative. Your symptoms are consistent with a flare-up of your asthma. When your albuterol inhaler and nebulizers are not working, this most likely means that there is a large inflammatory component in your breathing tubes. You were treated with the anti-inflammatory steroid Solu-Medrol 125 mg IV. Take prednisone 20 mg pills, 3 pills once a day for 5 days. While you are taking prednisone, do not take any NSAIDs (Motrin, Advil, ibuprofen, Aleve, naproxen). Take Tylenol (acetaminophen) 500 mg pills, 2 pills every 4 to 6 hours as needed for pain or fever. Take Advair 1 puff twice a day. This is a inhaler but has a long-acting albu terol like medication and a long-acting steroid in it. This medication will help prevent flare-ups of your asthma. Do not use this medication to try to treat shortness of breath, if you feel short of breath use your albuterol inhaler. Follow-up with your doctor in 2 days. Please return to the emergency department if your symptoms get worse or if you develop any symptoms that are concerning to you. Please see the work note. If your prescriptions are not covered by your insurance then have the pharmacist call my cell phone number and I can change the prescription to the medicine that is covered by your insurance. Prescriptions: New prednisone 20 mg tablet 60 mg PO DAILY 5 Days Qty: 15 0RF fluticasone propion-salmeterol [Advair Diskus] 250-50 mcg/dose blister with device 1 inh inhalation Q12H Qty: 60 0RF albuterol sulfate [ProAir HFA] 90 mcg/actuation HFA aerosol inhaler 2 puff inhalation Q4-6H PRN (Reason: shortness of breath or wheezing) Qty: 8.5 0RF No Action codeine-guaifenesin [Guaifenesin AC] 10-100 mg/5 mL liquid 10 ml PO Q4-6H PRN (Reason: cold symptoms) 3 Days Qty: 180 0RF Rx Instructions: side effect is drowsiness. Do not take at work or while driving. dexamethasone [Decadron] 6 mg tablet 6 mg PO DAILY 10 Days Qty: 10 0RF Stand Alone Forms: Work/School Release
[2022-04-04] MEDS: Albuterol Sulfate (0.083%) 2.5 MG/3 ML VIAL.NEB 5 MG INHALE (19:21)
[2022-04-04 19:23] VITALS: PULSE 130; RESP 22; O2SAT 100
[2022-04-04 19:38] LABS: MANUAL DIFF FLAG NO
[2022-04-04] MEDS: methylPREDNISolone Sod Succ 125 MG/2 ML VIAL IVPUSH (19:50)
[2022-04-04 19:53] LABS: Alanine Aminotransferase 41 U/L (0-31); Albumin Level 3.5 g/dL (3.5-5.0); Alkaline Phosphatase 69 U/L (39-117); Anion Gap 13 (12-20); Aspartate Amino Transferase 40 U/L (5-31); Basophils Percent Auto 0.4 % (0-2); Bilirubin Total 0.5 mg/dL (0.0-1.0); Blood Urea Nitrogen 7 mg/dL (9-16); Calcium 8.5 mg/dL (8.4-10.2); Carbon Dioxide 20 mmol/L (22-29); Chloride 108 mmol/L (96-108); Creatinine Clr Calc Pharmacy 160.1; Eosinophils Absolute Auto 0.2 X10*3/uL (0.0-0.4); Eosinophils Percent Auto 1.5 % (0-4); Estimated Glomerular Filt Rate > 60; Glucose Random 117 mg/dL (60-115); Hematocrit 32.6 % (37.0-47.0); Hemoglobin 10.6 g/dl (12.0-16.0); Imm Gran Abs Auto 0.22 X10*3/uL (0.00-0.03); Imm Gran Pct Auto 1.9 % (0.0-0.4); Lymphocytes Absolute Auto 1.3 X10*3/uL (1.2-4.9); Lymphocytes Percent Auto 11.3 % (20-40); Mean Corpuscular HGB Conc 32.5 g/dl (31.0-35.0); Mean Corpuscular Hemoglobin 28.8 pg (27.0-33.0); Mean Corpuscular Volume 88.6 fL (80.0-98.0); Mean Platelet Volume 11.6 fL (9.4-12.3); Monocytes Absolute Auto 0.8 X10*3/uL (0.1-1.2); Monocytes Percent Auto 6.8 % (2-11); Neutrophils Absolute Auto 8.9 x10*3/uL (2.0-8.3); Neutrophils Percent Auto 78.1 % (45-73); Platelet Count 201 X10*3/uL (160-400); Potassium 3.9 mmol/L (3.3-5.1); Red Blood Count 3.68 X10*6/uL (4.20-5.50); Red Cell Distribution Width 14.2 % (11.0-16.0); Sodium 137 mmol/L (135-145); White Blood Count 11.4 X10*3/uL (4.8-10.8)
[2022-04-04 19:57] VITALS: PULSE 143; RESP 18; O2SAT 96
[2022-04-04 20:38] LABS: Influenza A PCR NEGATIVE (Negative); Influenza B PCR NEGATIVE (Negative); Resp Syncy Virus RNA Qual PCR NEGATIVE (Negative); SARS COV2 PCR INHOUSE NEGATIVE (Negative)
== END 2022-04-04 22:00 | disposition home or self-care (01) ==
PROVIDERS: Emergency Provider Emergency Medicine Emergency Medical Services; PCP Internal Medicine
DX: O99.512 Diseases of the respiratory system complicating pregnancy, second trimester (principal); J45.901 Unspecified asthma with (acute) exacerbation; Z3A.25 25 weeks gestation of pregnancy; Z20.822 Contact with and (suspected) exposure to COVID-19; Z20.828 Contact with and (suspected) exposure to other viral communicable diseases
CPT/HCPCS: 0241U; 36415; 71046; 80053; 85025; 94640; 96374; 99284; J2930

== ENCOUNTER 2022-04-30 13:53 | Outpatient (REF) | payer OTHER, SELFPAY ==
[2022-04-30 15:07] LABS: MANUAL DIFF FLAG NO
[2022-04-30 15:43] LABS: Basophils Percent Auto 0.3 % (0-2); Eosinophils Absolute Auto 0.3 X10*3/uL (0.0-0.4); Eosinophils Percent Auto 2.1 % (0-4); Hematocrit 34.5 % (37.0-47.0); Imm Gran Abs Auto 0.51 X10*3/uL (0.00-0.03); Imm Gran Pct Auto 4.3 % (0.0-0.4); Lymphocytes Absolute Auto 1.9 X10*3/uL (1.2-4.9); Lymphocytes Percent Auto 15.7 % (20-40); Mean Corpuscular HGB Conc 31.9 g/dl (31.0-35.0); Mean Corpuscular Hemoglobin 28.2 pg (27.0-33.0); Mean Corpuscular Volume 88.5 fL (80.0-98.0); Mean Platelet Volume 11.5 fL (9.4-12.3); Monocytes Absolute Auto 0.7 X10*3/uL (0.1-1.2); Neutrophils Absolute Auto 8.4 x10*3/uL (2.0-8.3); Neutrophils Percent Auto 71.6 % (45-73); Platelet Count 231 X10*3/uL (160-400); Red Cell Distribution Width 14.5 % (11.0-16.0); White Blood Count 11.8 X10*3/uL (4.8-10.8)
[2022-04-30 16:19] LABS: Glucose 1 Hour PP 50gm Dose 120 mg/dL (60-140)
[2022-04-30 16:33] LABS: Alanine Aminotransferase 28 U/L (0-31)
[2022-05-01 04:02] LABS: Syphilis Screen Nonreactive (Nonreactive)
== END 2022-04-30 13:54 | disposition home or self-care (01) ==
LOC: HO.LAB 13:53
PROVIDERS: PCP Nurse Practitioner Family; Visit Provider Registered Nurse
DX: Z34.03 Encounter for supervision of normal first pregnancy, third trimester (principal)
CPT/HCPCS: 36415; 82950; 84460; 85025; 86780

== ENCOUNTER 2022-12-20 13:03 | Emergency (ER) | payer OTHER, SELFPAY ==
[2022-12-20 13:05] VITALS: BP 133/81; PULSE 94; RESP 18; TEMP 36.7; O2SAT 100; BMI 38.1
--- NOTE | 2022-12-20 13:05 | ED.GENADULT ---
HPI - General Adult General Chief complaint: Upper Respiratory Symptoms Stated complaint: Lost voice Time Seen by Provider: 12/20/22 13:27 Source: patient Mode of arrival: ambulatory Limitations: no limitations History of Present Illness HPI narrative: patient is a 27-year-old female who presents emergency department for evaluation of loss of voice. She reports 6 days ago having upper respiratory symptoms cough, sore throat. These improved after a few days. Yesterday her voice was very hoarse which has worsened today. Denies sore throat currently, reports throat feeling dry . Denies fevers, chills, neck pain, headache, shortness of breath, difficulty breathing, chest pain Related Data Home Medications Medication Instructions Recorded Confirmed aspirin 81 mg tablet,delayed 81 mg PO DAILY 05/11/22 05/11/22 release Previous Rx's Medication Instructions Recorded albuterol sulfate 90 mcg/actuation 2 puff inhalation Q4-6H PRN 04/04/22 aerosol inhaler (ProAir HFA) shortness of breath or wheezing #8.5 grams Allergies Allergy/AdvReac Type Severity Reaction Status Date / Time No Known Allergies Allergy Verified 05/11/22 09:17 [No Known Allergies*] Review of Systems Review of Systems: Yes all other systems are reviewed and are negative PMFSH Past Medical History Attestation statement: The following information was validated with the patient. Source: old records reviewed Medical History Asthma Elevated LFTs Cystitis Pelvic pressure in female Surgical History [place] teeth removed Family History Family History (Updated 05/11/22 @ 09:19 by ORION Vernon) Paternal Grandmother Diabetes Paternal Aunt Liver disease Father No problems noted. Mother No problems noted. Social History Social History (Updated 05/11/22 @ 09:20 by ORION Vernon) Housing: House Alcohol intake: former Patient Tobacco Use Status: Former Tobacco user Tobacco use type: Cigarette e-Cigarette/Vaping Use: Never Used Advance Directives: No Advance Directives Information Provided: No service: No Current occupational status: employed Gender identity: Female Physical Exam ED Vital Signs: Vital Signs - 24 hr 12/20/22 13:05 Temperature 98.1 F Pulse Rate 94 Respiratory Rate 18 Blood Pressure 133/81 Pulse Oximetry 100 Oxygen Delivery Method Room Air BMI result Body Mass Index 38.1 Appearance: Alert.?Oriented to person, place and time. No acute distress.?Normal affect. Eyes: Pupils equal, round and reactive to light.? ENT: Pharynx mildly erythematous without exudates or tonsillar hypertrophy. Uvula midline. No trismus. No drooling. TM normal bilaterally.?? Neck: Normal inspection.? Neck supple.?? no cervical lymphadenopathy CVS: Heart sounds normal. Normal heart rate and rhythm.? Pulses normal.?? Respiratory: No respiratory distress.? Lung sounds clear to auscultation bilaterally?? Skin: Skin warm and dry.? Normal skin color.? Extremities: No lower extremity edema.? Neuro: Moves all extremities spontaneously. Sensation intact bilaterally. Ambulates with normal steady gait. Course Course Course Narrative: RME performed by Roxana Garsia PA-C. Patient is a 27 year old assigned female at presenting to the emergency department with a sore throat and lost voice. Swabs ordered. Patient placed back in the waiting room pending room availability and results. Medical Decision Making Medical Decision Making MDM Narrative: Patient is a 27-year-old female who presents emergency department for evaluation of hoarseness to her voice after recent upper respiratory infection as per HPI. At the time my examination she overall appears well, nontoxic, afebrile, without tachycardia tachypnea or hypoxia. She speaking clear full sentences. She is managing secretions appropriately. No risk factors for laryngeal cancer, she is not a smoker, nor chronic alcohol use. No neurological deficits, tremors, weakness to suggest neurological disease. Symptoms most consistent with acute laryngitis, discussed conservative treatment including rest, hydration, humidification, and voice rest, discussed with patient limited role of systemic local cortical goiter and management, she states she is unable to work due to her loss of voice, will trial course of glucocorticoid. she is stable for discharge home, outpatient follow-up with primary care provider as needed, discussed worrisome signs and symptoms that would warrant re-evaluation in the emergency department. Differential Diagnosis Differential Diagnoses: The differential diagnosis associated with the presentation includes ( As noted above) Lab Data Labs: Lab Results 12/20/22 Range/Units 13:16 S. pyogenes GrpA IMANI Negative (Negative) External Record Review External record reviewed: Outpatient record Prescription Management I considered prescription management with: Pain Medication ( acetaminophen/ibuprofen) Discharge Plan Discharge Clinical Impression: Laryngitis Patient Disposition: Home, Self-Care Instructions: Laryngitis (ED) Prescriptions: No Action albuterol sulfate [ProAir HFA] 90 mcg/actuation HFA aerosol inhaler 2 puff inhalation Q4-6H PRN (Reason: shortness of breath or wheezing) Qty: 8.5 0RF aspirin 81 mg tablet,delayed release (DR/EC) 81 mg PO DAILY
[2022-12-20 13:35] LABS: IDNOW Serial# 08D9AD1C; Strep A Nucleic Acid Negative (Negative)
[2022-12-20] MEDS: dexAMETHasone sod phosphate 4 MG/ML VIAL 8 MG PO (14:17)
[2022-12-20 14:20] LABS: Influenza A PCR NEGATIVE (Negative); Influenza B PCR NEGATIVE (Negative); Resp Syncy Virus RNA Qual PCR NEGATIVE (Negative); SARS COV2 PCR INHOUSE NEGATIVE (Negative)
== END 2022-12-20 14:27 | disposition home or self-care (01) ==
PROVIDERS: Physician Assistant Medical; Emergency Provider Emergency Medicine Emergency Medical Services
DX: J04.0 Acute laryngitis (principal); Z20.822 Contact with and (suspected) exposure to COVID-19; Z20.828 Contact with and (suspected) exposure to other viral communicable diseases; Z87.891 Personal history of nicotine dependence
CPT/HCPCS: 0241U; 87651; 99283; J1100

== ENCOUNTER 2023-08-30 13:06 | Outpatient (AMB) | payer OTHER, SELFPAY ==
--- NOTE | 2023-08-30 13:19 | A.OFFPC_ITS ---
Vital Signs 08/30/23 13:23 Height 5 ft 3 in Weight 236 lb 6 oz BMI 41.9 BP 98/80 Blood Pressure Location Lt brachial Position Sitting Respiration 14 Pulse 87 Pulse Source Pulse Oximeter Temp 99 F Temp Source Oral Intake Visit Reasons: Re est care/xfer Marleny Intake Note: New patient visit Credit And Loan Collections Supervisor Required: No Is last menstrual period known: No Allergies No Known Allergies [No Known Allergies*] Allergy (Verified 08/30/23 13:20) Medication List - Last Reconciled 08/30/23 by Beba Tran, COPY WORKER- albuterol sulfate 90 mcg/actuation (ProAir HFA) 2 puffs inhalation Q4-6H PRN ibuprofen (IBU) 800 mg PO Q8H Tobacco use date assessed: 08/30/23 Dental Screening Dental Screen Date: 08/30/23 Did you have a dental visit in the last 12 months?: No Did you have a dental problem in the last 6 months where you did not have access to dental care?: No Was dental information given to patient?: Patient declined HPI HPI Comments History of Present Illness Details Asya 28-year-old female with obesity, fatty l iver, celiac disease, mild intermittent asthma, former tobacco user, pitryiasis versicolor, ADHD Surgical Hx: wisdom teeth removal Social: , 1 year old son, 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 PAP 02/16/2020 ? 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 for chronic conditions. ADHD: was dx in childood, was taking meds in fourth grade, however stopped d/t wt loss and poor appetite. Feels she's been managing however after of son and with new job, having a hard time staying focused. Migraines: has never had an issue w/ migraines until she had IUD placed. They are w/o aura. Has the Mirena. When she had the IUD removed her migraines were resolved. Now occuring 1-2 x month, Taking Ibu 800 mg for relief. Does have assoc n/v. wears glasses, last eye exam 2 months ago. Obesity. Was paying out of pocket for Zepbound. Did have wt loss however once she stopped the wt came back. Discussed wt mgmt and surgery. Not interested in surgery but is interested in help losing wt. Elevated LFTs/fatty liver/celiacs. was ffd by [facility], EGD done in 2020. She fell out of care d/t COVID. She cont to have elevated LFTS. Not following gluten free diet. No abd pain. Interested in getting back into care with GI Finally, c/o bilat wrist pain that started a few months ago, affecting left more than right; right hand dominant. using nsaid to help with + relief. denies injury. doing daily activities is affected by this pain; types a lot; using ergonomic supports w/o relief. Interested in f/u Asthma well controlled on PRN OK Exam: Awake alert, NAD Scleras nonicteric bilat MMM RRR LS CTAB FROM bilat wrists c/o pain w/ flexion and extension Mood and affect appropriate Plan: fu with SPECIAL EDUCATION TEACHER to inquire about changing control method to rid migraines. If unable, we can discuss starting abortive medications other than Ibuprofen. Discussed joining [employer]. Eating enough calories; keeping food log & starting Metformin to help lose wt. [facility] referral placed today to re est care w/ Dr Dumont Refer to [facility] Ortho for bilat wrist pain for eval and tx, ok to cont NSAIDs prn. Labs today. RTO in 4-6 weeks to fu on labs, discuss starting ADHD medications and see how the metformin is working for you, sooner as needed. This note is constructed using voice recognition software. While every effort has been made to ensure accuracy in farm equipment operator, still errors may have been included Sometimes, these errors may affect the content or meaning of the given sentence . Total time spent caring for the patient today was 45 minutes. This includes time spent before the visit reviewing the chart, time spent during the visit, and time spent after the visit on documentation [facility] Medical History (Updated 08/30/23 @ 14:13 by Beba Tran, ORION-) COVID Asthma Elevated LFTs Cystitis Pelvic pressure in female Surgical History [place] teeth removed Family History (Updated 08/30/23 @ 13:26 by Viviana Lee [facility]) Paternal Grandmother Diabetes Paternal Aunt Liver disease Father No problems noted. Mother No problems noted. 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 1. Little interest or pleasure in doing things: several days 2. Feeling down, depressed, or hopeless: not at all 3. Trouble falling or staying asleep, or sleeping too much: several days 4. Feeling tired or having little energy: not at all 5. Poor appetite or overeating: more than half the days 6. Feeling bad about yourself - or that you are a failure or have let yourself or your family down: several days 7. Trouble concentrating on things, such as reading the newspaper or watching television: nearly every day 8. Moving or speaking so slowly that other people could have noticed. Or the opposite - being so fidgety or restless that you have been moving around a lot more than usual: not at all 9. Thoughts that you would be better off or of hurting yourself in some way: not at all Total score: 8 Depression Screening Interpretation: Positive Depression Screening Done: Yes 50352 - PHQ-9 Billing: Yes Source: Developed by Drs. Sven Baig, Lili Godinez, Ruddy Dunn and colleagues, with an educational dada from [employer]. Thrive Questionnaire Date Thrive assessed: 08/30/23 I am a: Patient What is your living situation today?: I have a steady place to live Within the past 12 months, did the food you bought not last and you didn't have the money to get more?: Never true Within the past 12 months, did you worry whether your food would run out before you got money to buy more?: Never true Do you have trouble paying for medicines?: No Do you have trouble getting transportation to medical appointments?: No Do you have trouble paying your heating and electricity bill?: No Do you have trouble taking care of your child, family member or friend?: No Do you have trouble with day-to-day activities such as bathing, preparing meals, shopping, managing finances, etc.?: No Are you currently unemployed and looking for a job?: No Are you interested in more education?: No Please select the resources that you would like help with: None Currently or been in a relationship where the following occur: No concerns reported THRIVE Score: 0 AUDIT C Alcohol Use Questionnaire (AUDIT-C) 1. How often do you have a drink containing alcohol?: Monthly or less 2. How many drinks containing alcohol do you have on a typical day when you are drinking?: 1 or 2 3. How often do you have six or more drinks on one occasion?: Never Total Score: 1 MAYUR-7 AMB Questionnaire MAYUR-7 Date MAYUR - 7 assessed: 08/30/23 Feeling nervous, anxious, or on edge: 2 = More than half the days Not being able to stop or control worryin = Several days Worrying too much about different things: 1 = Several days Trouble relaxin = Not at all Being so restless that it is hard to sit still: 1 = Several days Becoming easily annoyed or irritable: 1 = Several days Feeling afraid as if something awful might happen: 0 = Not at all Total MAYUR-7 score (0-4 normal; 5-9 mild; 10-14 moderate; 15-21 severe): 6 Source: Developed by Drs. Sven Baig, Lili Godinez, Ruddy Dunn and colleagues, with an educational dada from [employer]. MAYUR-7 Assessment Billing MAYUR-7 Assessment Tool: MAYUR-7 Assessment 60989 ACT Questionnaire In the past 4 weeks, how much of the time did your asthma keep you from getting as much done at work, school or at home?: None of the time During the past 4 weeks, how often have you had shortness of breath?: Not at all During the past 4 weeks, how often did your asthma symptoms wake you up at night or earlier than usual in the morning?: Not at all During the past 4 weeks, how often have you had to use your rescue inhaler or nebulizer medication?: Not at all How would you rate your asthma control during the past 4 weeks?: Well controlled ACT Interpretation: Negative Score: 24 Physical exam (Primary Care) Vital Signs: Last Vital Signs Temp 99 F 08/30/23 13:23 Pulse 87 08/30/23 13:23 Resp 14 08/30/23 13:23 BP 98/80 08/30/23 13:23 BMI result Body Mass Index 41.9 BMI Assessment/Plan discussion: High BMI High, discussed plan: lifestyle Tobacco/Smoking Status: Tobacco use Status Tobacco use date assessed 08/30/23 08/30/23 13:28 Patient Tobacco Use Status Former Tobacco user 08/30/23 13:28 Tobacco use type 08/30/23 13:28 e-Cigarette/Vaping Use Former Use 08/30/23 13:28 PHQ-9: PHQ-9 Score PHQ-9: Total score 8 08/30/23 13:28 Depression Screening Interpretation: Positive Thrive Assessment: Date of Thrive Assessment Date Thrive assessed 08/30/23 08/30/23 13:28 Currently or been in a relationship where the following occur: No concerns reported Assessment and Plan Assessment & Plan (1) Fatty liver: Code(s): K76.0 - Fatty (change of) liver, not elsewhere classified (2) LFT elevation: Code(s): R79.89 - Other specified abnormal findings of blood chemistry (3) Celiac disease: Code(s): K90.0 - Celiac disease (4) Elevated LFTs: Code(s): R79.89 - Other specified abnormal findings of blood chemistry (5) Body mass index (BMI) of 40.1 to 44.9 in adult: Code(s): Z68.41 - Body mass index [BMI] 40.0-44.9, adult (6) Bilateral wrist pain: Code(s): M25.531 - Pain in right wrist; M25.532 - Pain in left wrist (7) ADHD: Code(s): F90.9 - Attention-deficit hyperactivity disorder, unspecified type (8) Mild intermittent asthma without complication: Code(s): J45.20 - Mild intermittent asthma, uncomplicated Orders: Orders Comprehensive Met. Panel Today E66.9 - Obesity, unspecified, R79.89 - Other specified abnormal findings of blood chemistry Complete Blood Count no Diff Today E66.9 - Obesity, unspecified, R79.89 - Other specified abnormal findings of blood chemistry Hemoglobin A1c Today E66.9 - Obesity, unspecified, R79.89 - Other specified abnormal findings of blood chemistry IRON PROFILE Today E66.9 - Obesity, unspecified, R79.89 - Other specified abnormal findings of blood chemistry TSH reflex Free T4 Today E66.9 - Obesity, unspecified, R79.89 - Other specified abnormal findings of blood chemistry Vitamin B12 and Folate Today E66.9 - Obesity, unspecified, R79.89 - Other specified abnormal findings of blood chemistry Vitamin D 25-OH Total Today E66.9 - Obesity, unspecified, R79.89 - Other specified abnormal findings of blood chemistry Referrals Gastroenterology Referral E66.9 - Obesity, unspecified, K76.0 - Fatty (change of) liver, not elsewhere classified, K90.0 - Celiac disease, R79.89 - Other specified abnormal findings of blood chemistry Orthopedics Referral M25.531 - Pain in right wrist, M25.532 - Pain in left wrist Patient Instructions: Walk-In Care (Urgent Care): We Make it Easy Walk-in for urgent medical issues such as: ? Seasonal Allergies ? Insect Bites ? Cough ? Diarrhea ? Acute Asthma Attacks ? Back, Knee or Joint Pain ? Ear Infection ? Fever without a Rash ? Headaches ? Nausea ? [place] Eye, Rash or Skin Irritation ? Sore Throat ? Sports Physicals ? Vomiting Most insurances are accepted. Patients do not need to be part of the [facility] to seek care at the walk-in clinic. Locations [facility] , [place] [address] ? [phone] [facility] Walk-In Care in [place] provides services to ages 18 and over. Open Wednesday-Wednesday: 8 a.m. to 5 p.m. and Wednesday: 9 a.m. to 3 p.m.* *Hours may vary due to staffing availability. To confirm Walk-In Care hours in [place], please call [phone]. [address] [place] [id number] ? [phone] [facility] Walk-In Care in [place] provides services to ages 12 and over. Open Wednesday-Wednesday: 8 a.m. to 5 p.m. Hours may vary due to staffing availability. To confirm Walk-In Care hours in [place], please call [phone]. LABORATORY SERVICES: [facility] Lab ? Primary Location [address] [facility] Wednesday through Wednesday 6:00 AM ? 5:00 PM Wednesday 7:00 AM ? 11:00 AM* [phone] The [facility] Lab is centrally located near the front entrance of the [facility] for easy outpatient access. Convenient parking is provided for outpatients. *Hours may vary due to staffing availability. To confirm Laboratory hours for any location, please call [phone]. Offsite Location For your convenience, we offer offsite laboratory draw stations at the following locations: [address] [place] [address] ? [address], [address] Wednesday through Wednesday 7:30 AM ? 1:00 PM* [phone] *Hours may vary due to staffing availability. To confirm Laboratory hours for any location, please call [phone]. [place] ? [address] Wednesday through Wednesday 6:00 AM ? 3:30 PM* Wednesday 6:30 AM ? 3 PM* [phone] *Hours may vary due to staffing availability. To confirm Laboratory hours for any location, please call [phone] [place] [address] Wednesday through Wednesday 7:30 AM ? 4:00 PM* [phone] *Hours may vary due to staffing availability. To confirm Laboratory hours for any location, please call [phone] [place] [address] Wednesday through 9:00 AM ? 4:00 PM* *Hours may vary due to staffing availability. To confirm Laboratory hours for any location, please call [phone]. Appointments are not necessary. Walk-ins are welcome. Like all the departments throughout the [facility], our Lab undergoes frequent reviews to ensure the quality and accuracy of test results, and our staff takes special pride in its status as a nationally accredited facility. Patient Portal: ONE PATIENT. ONE RECORD. BETTER CARE. [facility] has a fully integrated, cutting- edge mobile electronic health information system that has revolutionized the way we care for our patients and manage our organization. This system improves communication and coordination enabling us to provide safe, higher-quality care, and an overall positive experience for staff and patients. Our first priority, as always, is to deliver the highest quality care possible. The system is running in the background supporting that priority. This portal is for all [facility] services and practices. If you are experiencing any technical difficulties with enrolling or logging into the Patient Portal please complete the [facility] Patient Portal Technical Support Form. [facility] now offers a new secure on-line interactive tool for patients to review their health information ? ?Patient Portal. This interactive web portal will enable patients and their families to take an active role in their care by providing easy, secure access to their health information via the internet. The Patient Portal provides patients with instant access to their health information, including laboratory results, medications, allergies, demographic information, visit history, and more. In addition to managing their own care, parents and health care proxies with authorized consent will appreciate the ability to access the records of those individuals for whom they provide care. Please note: if you wish to gain access (Proxy) to another patient?s portal, you will be required to come to the Medical Records Department in person at [facility]. Both the patient giving proxy access and the proxy will need to provide photo identification and complete the appropriate authorization. The Patient Portal also allows track their appointments online. The [facility] Patient Portal also saves patients time by allowing them to submit updates to their demographic and contact information prior to their visits. Portal email notifications will also alert patients to any new activity on their portal, such as test results and new appointments. In order to initially enroll in the [facility] Patient Portal, you will need to enter some required information including the following: * your [facility] Medical Record number * your personal home email address * name * date of Please note: In order to enroll in the [facility] Patient Portal, we need to have your email address on file in your electronic medical record. ?The email address needs to be specific for one person (yourself) in order for your Portal enrollment to be successful. ?You can update your email address in person with our Registration staff when you are registering for a hospital visit. ?Otherwise, you will need to come to the Health Information Management (Medical Records) Department at [facility]. ?We are open from Wednesday ? Wednesday from 7:30 a.m. ? 4:30 p.m. ?You will be required to present a photo id. Once you have successfully enrolled in the Patient Portal, you will receive a one-time user id and password for the Portal, sent to your email address. ?This will allow you to log into the Patient Portal within 99 hrs and reset your own logon id and password, and define personal security questions. ?Once your permanent login and password have been set, you can log into the [facility] Patient Portal at any time via the blue button above or from the Portal Logon button on any page of the [facility] website. [facility] encourage all of our patients to enroll in Patient Portal as it presents a valuable opportunity for patients and their families to actively participate in their care and stay healthy Welcome to [facility]. ?We look forward to working with you. Coding Level of Care Code Est Pt Level 5 (75434) Diagnoses Fatty liver K76.0 LFT elevation R79.89 Celiac disease K90.0 Body mass index (BMI) of 40.1 to 44.9 in adult Z68.41 Bilateral wrist pain M25.531; M25.532 ADHD F90.9 Mild intermittent asthma without complication J45.20 Additional Codes MAYUR-7 Assessment Billing - MAYUR-7 Assessment Tool: MAYUR-7 Assessment 41921 ([id number])
[2023-08-30 13:23] VITALS: BP 98/80; PULSE 87; RESP 14; TEMP 37.2; BMI 41.9
== END 2023-08-30 14:09 | disposition home or self-care (01) ==
PROVIDERS: PCP Nurse Practitioner Family; Visit Provider Nurse Practitioner Family
DX: K76.0 Fatty (change of) liver, not elsewhere classified (principal); Z68.41 Body mass index [BMI] 40.0-44.9, adult; E66.01 Morbid (severe) obesity due to excess calories; R79.89 Other specified abnormal findings of blood chemistry; K90.0 Celiac disease; M25.531 Pain in right wrist; M25.532 Pain in left wrist; F90.9 Attention-deficit hyperactivity disorder, unspecified type; J45.20 Mild intermittent asthma, uncomplicated
CPT/HCPCS: 99215

== ENCOUNTER 2023-08-30 14:02 | Outpatient (REF) | payer OTHER, SELFPAY ==
[2023-08-30 17:41] LABS: Hematocrit 41.9 % (37.0-47.0); Hemoglobin 13.5 g/dl (12.0-16.0); Mean Corpuscular HGB Conc 32.2 g/dl (31.0-35.0); Mean Corpuscular Hemoglobin 28.8 pg (27.0-33.0); Mean Corpuscular Volume 89.3 fL (80.0-98.0); Mean Platelet Volume 11.7 fL (9.4-12.3); Platelet Count 280 X10*3/uL (160-400); Red Blood Count 4.69 X10*6/uL (4.20-5.50); Red Cell Distribution Width 13.2 % (11.0-16.0); White Blood Count 11.6 X10*3/uL (4.8-10.8)
[2023-08-30 17:47] LABS: Estimated Average Glucose 100 mg/dL; Hemoglobin A1c % 5.1 % (<6.0)
[2023-08-30 17:58] LABS: Alanine Aminotransferase 84 U/L (0-31); Albumin Level 4.4 g/dL (3.5-5.0); Alkaline Phosphatase 77 U/L (39-117); Anion Gap 13 (12-20); Aspartate Amino Transferase 44 U/L (5-31); Bilirubin Total 0.4 mg/dL (0.0-1.0); Blood Urea Nitrogen 10 mg/dL (9-16); Calcium 9.8 mg/dL (8.4-10.2); Carbon Dioxide 25 mmol/L (22-29); Chloride 103 mmol/L (96-108); Estimated Glomerular Filt Rate > 60; Glucose Random 84 mg/dL (60-115); Iron 60 mcg/dL (30-160); Percent Iron Saturation 21 % (15-50); Potassium 3.7 mmol/L (3.3-5.1); Sodium 137 mmol/L (135-145); Total Iron Binding Capacity 287 mcg/dL (228-428); Total Protein 7.6 g/dL (6.5-8.0); Unsaturated Iron Binding 227 ug/dL
[2023-08-30 18:21] LABS: Vitamin D 25-OH Total 40.3 ng/mL (>30)
[2023-08-30 18:26] LABS: Vitamin B12 412 pg/mL (200-900)
== END 2023-08-30 14:03 | disposition home or self-care (01) ==
LOC: HO.WFDLDS 14:02
PROVIDERS: Visit Provider Nurse Practitioner Family
DX: E66.9 Obesity, unspecified (principal); R79.89 Other specified abnormal findings of blood chemistry
CPT/HCPCS: 36415; 80053; 82306; 82607; 82746; 83036; 83540; 84443; 85027

== ENCOUNTER 2023-09-13 11:21 | Outpatient (AMB) | payer OTHER, SELFPAY ==
--- NOTE | 2023-09-13 11:38 | MHC.PC.OV ---
Vital Signs 09/13/23 11:44 Height 5 ft 3 in Weight 235 lb 2 oz BMI 41.6 BP 120/72 Blood Pressure Location Lt brachial Position Sitting Respiration 12 Pulse 68 Pulse Source Pulse Oximeter Temp 98.2 F Temp Source Temporal Artery Scan Pulse Oximetry (%) 99 Oxygen Delivery Method Room Air Intake Visit Reasons: Review bloodwork, ADHD exam Intake Note: Follow up. Blood work results. Is last menstrual period known: No Allergies No Known Allergies [No Known Allergies*] Allergy (Verified 09/13/23 11:38) Medication List - Last Reconciled 09/13/23 by Beba Tran, FORENSIC ACCOUNTANT- albuterol sulfate 90 mcg/actuation (ProAir HFA) 2 puffs inhalation Q4-6H PRN ibuprofen (IBU) 800 mg PO Q8H metformin ER 500 mg PO QPM Tobacco use date assessed: 08/30/23 Dental Screening Dental Screen Date: 08/30/23 HPI HPI Comments History of Present Illness Details Asya 28-year-old female with obesity, fatty liver, celiac disease, mild intermittent asthma, former tobacco user, pitryiasis versicolor, ADHD Surgical Hx: wisdom teeth removal Social: , 1 year old son, 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 PAP 02/16/2020 ? Tdap 05/06/2022 EGD 2020 Specialists: Gastroenterology Nutrition Cytotechnologist/Cytology Supervisor Since last visit, started weight watchers. So far so good. Taking Metformin in the evening. No GI upset. + wt loss. GI - appt scheduled this month. In regards to migraines, remain the same. Waiting to get into JAVA ANDROID DEVELOPER to discuss IUD. Labs from 08/30/23 WNL except elevated AST/ALT which is chronic. ADHD ASR-v1 completed today and +. Was on med in childhood, stopped d/t decreased appetite. Discuss the prescribing of stimulants versus non stimulants. For non stimulants discuss Strattera and Wellbutrin. Generally discuss the stimulants in the maintenance required for these medications. Exam: Awake alert, NAD Scleras nonicteric bilat Mood and affect appropriate Plan: fu with JAVA ANDROID DEVELOPER to inquire about changing control method to rid migraines. If unable, we can discuss starting abortive medications other than Ibuprofen. Continue Wt Watchers. Eating enough calories; keeping food log & continue Metformin to help lose wt. [facility] GI referral to re est care w/ Dr Dumont Start Wellbutrin XL 150 mg p.o. daily. The goal of this medication would be to help her ADHD as well as to help her lose weight. Advised to monitor for abdominal pain which can be remedied with taking her medication with food, dizziness, mood changes. Advised that if any of these things occur to let me know via the portal and stopped the medication. We will titrate the medication to effect. RTO in 6-8 weeks to fu ADHD medication wellbutrin & metformin is working for you, sooner as needed. This note is constructed using voice recognition software. While every effort has been made to ensure accuracy in personal financial counselor, still errors may have been included Sometimes, these errors may affect the content or meaning of the given sentence . REPLACED BY [facility] Medical History (Updated 09/13/23 @ 12:20 by Beba Tran, [facility]-) COVID Asthma Elevated LFTs Cystitis Pelvic pressure in female Surgical History [place] teeth removed Family History (Updated 08/30/23 @ 13:26 by Viviana Lee [facility]) Paternal Grandmother Diabetes Paternal Aunt Liver disease Father No problems noted. Mother No problems noted. 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 Sven Baig, Lili Godinez, Ruddy Dunn and colleagues, with an educational dada from [employer]. Physical exam (Primary Care) Vital Signs: Last Vital Signs Temp 98.2 F 09/13/23 11:44 Pulse 68 09/13/23 11:44 Resp 12 09/13/23 11:44 BP 120/72 09/13/23 11:44 Pulse Ox 99 08/05/24 11:44 Oxygen Delivery Method Room Air 09/13/23 11:44 BMI result Body Mass Index 41.6 Tobacco/Smoking Status: Tobacco use Status Tobacco use date assessed 08/30/23 09/13/23 11:38 Patient Tobacco Use Status Former Tobacco user 09/13/23 11:38 Tobacco use type 08/31/23 14:13 e-Cigarette/Vaping Use Former Use 09/13/23 11:38 Thrive Assessment: Date of Thrive Assessment Date Thrive assessed 08/30/23 09/13/23 11:38 Assessment and Plan Assessment & Plan (1) ADHD: Code(s): F90.9 - Attention-deficit hyperactivity disorder, unspecified type Qualifiers: Attention deficit-hyperactivity disorder type: predominantly inattentive Qualified Code(s): F90.0 - Attention-deficit hyperactivity disorder, predominantly inattentive type (2) Elevated LFTs: Code(s): R79.89 - Other specified abnormal findings of blood chemistry (3) Fatty liver: Code(s): K76.0 - Fatty (change of) liver, not elsewhere classified Medications: New bupropion HCl XL (Wellbutrin XL) 150 mg PO QAM 90 tabs 0RF Coding Level of Care Code Est Pt Level 4 (47044) Diagnoses Attention deficit hyperactivity disorder (ADHD), predominantly inattentive type F90.0 Attention deficit-hyperactivity disorder type: predominantly inattentive Elevated LFTs R79.89 Fatty liver K76.0
[2023-09-13 11:44] VITALS: BP 120/72; PULSE 68; RESP 12; TEMP 36.8; O2SAT 99; BMI 41.6
== END 2023-09-13 12:17 | disposition home or self-care (01) ==
PROVIDERS: PCP Nurse Practitioner Family; Visit Provider Nurse Practitioner Family
DX: F90.0 Attention-deficit hyperactivity disorder, predominantly inattentive type (principal); R79.89 Other specified abnormal findings of blood chemistry; K76.0 Fatty (change of) liver, not elsewhere classified
CPT/HCPCS: 99214

== ENCOUNTER 2023-09-24 11:20 | Outpatient (AMB) | payer OTHER, SELFPAY ==
--- NOTE | 2023-09-24 11:23 | A.OFFVIS_ITS ---
Vital Signs 09/24/23 11:26 Handedness Right Intake Visit Reasons: New Pt - B/L wrist pain Intake Note: Eren is a 28 year old right hand dominant female who presents to the office today for a new patient visit for B/L wrist pain. 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 She says she types a lot at work and thinks this is how her symptoms started. Intermittent aching pains, numbness and tingling in B/L however right is worse than left and these symptoms are not usually at the same time. She expresses her aching pains just on the left and right side of her B/L wrist. Her recent episode she had she was typing a lot more at home and when she had to grab her baby's bottle resulting in immediate pain forcing her to let go of the bottle. Her numbness and tingling occurs mainly in her 2nd, 3rd, 4th, and 5th digits of her B/L hands when she notices she is typing more than usual in her day. When this happens she says she shakes her hands to try to get those sensations to end. She also has complaints of these digits occasionally cramping and when this occurs she just takes a break from using her hands. She takes ibuprofen when these symptoms worsen and she finds relief. She takes metformin for liver enzymes and weight loss. Allergies No Known Allergies [No Known Allergies*] Allergy (Verified 09/24/23 11:35) HPI HPI New Pt - B/L wrist pain: Details: Patient is a 28-year-old female who presents for evaluation of bilateral hand and wrist pain, ongoing for approximately 3-4 months. 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 The patient reports that, since taking this job, she has noticed significant discomfort and cramping in her bilateral hands and wrists. Originally the patient states that she has been having numbness, but states that she has not had any episodes of diminished sensation, and then she only appreciates more of a cramping sensation. The patient also reports that she is having some decreased driller brake lining strength over this time. Patient denies any diminished sensation in hands bilaterally. Patient reports that symptoms get worse with activity, improved with rest, and then she has taken ibuprofen with relief of symptoms. No other acute complaints or concerns at this time. Of note, the patient reports that her primary care provider stated that she was referring her to occupational therapy, and she thought she was in the office today for this service. [facility] Medical History (Updated 09/24/23 @ 11:52 by LUCI Hearn) COVID Asthma Elevated LFTs Cystitis Pelvic pressure in female Surgical History [place] teeth removed Family History (Updated 08/30/23 @ 13:26 by Viviana Lee [facility]) Paternal Grandmother Diabetes Paternal Aunt Liver disease Father No problems noted. Mother No problems noted. 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 Neuro: Patient has normal sensation to all digits of bilateral hands at this time Vascular: Cap refill brisk Pain: Patient reports no active pain or tenderness to palpation at this time ROM: Patient is able to make a good closed fist Good finger cross Good APB muscle belly firing Wrist flexion and extension full and intact. Patient is able to pronate and supinate bilateral wrists fully. Skin: No lacerations or abrasions. General: No ecchymosis, erythema, or evidence of infection. Psych: Appears grossly normal Affect normal Attitude cooperative Assessment & Plan Assessment & Plan (1) Stiffness of joints of both hands: Code(s): M25.641 - Stiffness of right hand, not elsewhere classified; M25.642 - Stiffness of left hand, not elsewhere classified Category: Medical (2) Bilateral wrist pain: Code(s): M25.531 - Pain in right wrist; M25.532 - Pain in left wrist Category: Medical Plan 1. Bilateral hand and wrist pain 2. Bilateral hand cramping and stiffness Ongoing for approximately 3-4 months At this time, I do not feel there is any acute orthopedic intervention indicated in this patient I feel if this patient's symptoms are most likely from a rapid increase in typing and writing associated with her job change Patient understands this Patient will be referred to occupational hand therapy for strengthening, range of motion, and stabilization of the joints of the bilateral hands and wrists Patient is amenable to this plan Patient will follow-up as needed with any acute concerns Orders: Orders OT Evaluation and Treatment Today M25.641 - Stiffness of right hand, not elsewhere classified, M25.642 - Stiffness of left hand, not elsewhere classified Coding Level of Care Code New Pt Level 3 (12935) Diagnoses Stiffness of joints of both hands M25.641; M25.642 Bilateral wrist pain M25.531; M25.532
== END 2023-09-24 11:53 | disposition home or self-care (01) ==
PROVIDERS: PCP Nurse Practitioner Family
DX: M25.641 Stiffness of right hand, not elsewhere classified (principal); M25.642 Stiffness of left hand, not elsewhere classified; M25.531 Pain in right wrist; M25.532 Pain in left wrist
CPT/HCPCS: 99203

== ENCOUNTER → 2023-09-24 11:20 | Outpatient (BNVA) | payer OTHER, SELFPAY | PROVIDERS: PCP Nurse Practitioner Family ==

== ENCOUNTER 2023-12-15 08:27 | Outpatient (AMB) | payer OTHER, SELFPAY ==
--- NOTE | 2023-12-15 08:32 | MHC.PC.OV ---
Vital Signs 12/15/23 08:36 12/15/23 08:55 Height 5 ft 3 in Weight 238 lb 2 oz BMI 42.2 BP 134/72 Blood Pressure Location Lt brachial Position Sitting Respiration 14 Pulse 104 H 70 Pulse Source Pulse Oximeter Auscultation Pulse Oximetry (%) 97 Oxygen Delivery Method Room Air Intake Visit Reasons: Med Review Intake Note: follow up on med review Pin Ball Machine Mechanic Required: No Allergies No Known Allergies [No Known Allergies*] Allergy (Verified 12/15/23 08:48) Medication List - Last Reconciled 12/15/23 by Beba Tran, [facility] albuterol sulfate 90 mcg/actuation (ProAir HFA) 2 puffs inhalation Q4-6H PRN ibuprofen (IBU) 800 mg PO Q8H metformin ER 500 mg PO QPM Tobacco use date assessed: 08/30/23 Dental Screening Dental Screen Date: 08/30/23 HPI HPI Comments History of Present Illness Details Asya 28-year-old female with obesity, fatty liver, celiac disease, mild intermittent asthma, former tobacco user, pitryiasis versicolor, ADHD Surgical Hx: wisdom teeth removal Social: , 1 year old son, 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 Shortly after starting she developed side effects of feeling angry and felt crazy; stopped taking it and mood return back to baseline. Metformin ER cont to be w/o side effects. Cont with weight watchers. Now going to the gym. Weight is stable. GI - had to r/s her appt, unsure of next date. Reviewed and do not see a date, advised to f/u on this. Advised to leave IUD by WALLPAPER PRINTER HELPER. Headaches are better; Did get better since last visit. Triggered by screen time. Got new glasses w/ blue light lenses. Has not used yet. Hopes this will help. Asthma is well controlled with p.r.n. use of albuterol. Declined flu vaccine Exam: Awake alert, NAD Scleras nonicteric bilat RRR LS CTAB Mood and affect appropriate Plan: Start Strattera 40 mg and titrate to effect. Advised for her to send me a message should she be unable to tolerate. Could consider dosing lower. The goal would be to help control her ADHD symptoms and once again help to control her weight. Continue metformin, weight watchers and going to the gym Refill on albuterol sent to the pharmacy. Declined flu vaccine Scheduled follow up with Gastroenterology to evaluate the elevated LFTs which is a chronic condition for you. Return to the office in about 3 weeks to follow up on Strattera start. Advised to monitor blood pressure and pulse at home. Bring log with her to the next visit. 15 minutes spent Discussing different forms of medications to help with weight loss. Discouraged the use of GLP-1s due to the need to use lifelong, weight gain after discontinuation, cost and cancer risk. Educated about the use of Wellbutrin which can be used in patients without a seizure history. This medication works by blocking out the reward center related to mindless eating. It also has a mild stimulating effect. The side effect profile includes mild anxiety as well as a slight dizzy sensation. Another medication used is metformin, this is a diabetic medication. This medication has GI side effects. But can be very beneficial in aiding with weight loss in patients without diabetes. Topiramate was also discussed. This is a seizure medication with side effect profile that includes need to monitor LFTs as well as blood counts. One of the side effects is weight loss. Another medication, Phentermine is a stimulant/controlled substance. This is an anorexient that is used short-term medication used. =. Finally the use of a medication called Contrave, which is Wellbutrin + naltrexone can be used. The brand name is usually not cover therefore would have to prescribe the 2 medications individually. This medication works just as the Wellbutrin; naltrexone aides in further blocking of the reward center to aide in wt loss. This note is constructed using voice recognition software. While every effort has been made to ensure accuracy in clean out driller helper, still errors may have been included Sometimes, these errors may affect the content or meaning of the given sentence . Total time spent caring for the patient today was 30 minutes. This includes time spent before the visit reviewing the chart, time spent during the visit, and time spent after the visit on documentation [facility] Medical History (Updated 12/15/23 @ 09:01 by Beba Tran, [facility]-) COVID Asthma Elevated LFTs Cystitis Pelvic pressure in female Surgical History [place] teeth removed Family History (Updated 08/30/23 @ 13:[address] [facility]) Paternal Grandmother Diabetes Paternal Aunt Liver disease Father No problems noted. Mother No problems noted. 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 1. Little interest or pleasure in doing things: not at all 2. Feeling down, depressed, or hopeless: not at all 3. Trouble falling or staying asleep, or sleeping too much: not at all 4. Feeling tired or having little energy: several days 5. Poor appetite or overeating: several days 6. Feeling bad about yourself - or that you are a failure or have let yourself or your family down: not at all 7. Trouble concentrating on things, such as reading the newspaper or watching television: more than half the days 8. Moving or speaking so slowly that other people could have noticed. Or the opposite - being so fidgety or restless that you have been moving around a lot more than usual: not at all 9. Thoughts that you would be better off or of hurting yourself in some way: not at all Total score: 4 01334 - PHQ-9 Billing: Yes Source: Developed by Drs. Sven Baig, Lili Godinez, Ruddy Dunn and colleagues, with an educational dada from [employer]. Thrive Questionnaire Date Thrive assessed: 12/15/23 I am a: Patient What is your living situation today?: I have a place to live, but I am worried about losing it in the future Within the past 12 months, did the food you bought not last and you didn't have the money to get more?: Never true Within the past 12 months, did you worry whether your food would run out before you got money to buy more?: Never true Do you have trouble paying for medicines?: No Do you have trouble getting transportation to medical appointments?: No Do you have trouble paying your heating and electricity bill?: No Do you have trouble taking care of your child, family member or friend?: No Do you have trouble with day-to-day activities such as bathing, preparing meals, shopping, managing finances, etc.?: No Are you currently unemployed and looking for a job?: No Are you interested in more education?: No Please select the resources that you would like help with: None Currently or been in a relationship where the following occur: No concerns reported THRIVE Score: 1 AUDIT C Alcohol Use Questionnaire (AUDIT-C) 1. How often do you have a drink containing alcohol?: 2-4 times a month 2. How many drinks containing alcohol do you have on a typical day when you are drinking?: 1 or 2 3. How often do you have six or more drinks on one occasion?: Less than monthly Total Score: 3 MAYUR-7 AMB Questionnaire MAYUR-7 Date MAYUR - 7 assessed: 12/15/23 Feeling nervous, anxious, or on edge: 1 = Several days Not being able to stop or control worryin = Not at all Worrying too much about different things: 1 = Several days Trouble relaxin = Not at all Being so restless that it is hard to sit still: 1 = Several days Becoming easily annoyed or irritable: 1 = Several days Feeling afraid as if something awful might happen: 0 = Not at all Total MAYUR-7 score (0-4 normal; 5-9 mild; 10-14 moderate; 15-21 severe): 4 Source: Developed by Drs. Sven Baig, Lili Godinez, Ruddy Dunn and colleagues, with an educational dada from [employer]. MAYUR-7 Assessment Billing MAYUR-7 Assessment Tool: MAYUR-7 Assessment 31364 ACT Questionnaire In the past 4 weeks, how much of the time did your asthma keep you from getting as much done at work, school or at home?: None of the time During the past 4 weeks, how often have you had shortness of breath?: Not at all During the past 4 weeks, how often did your asthma symptoms wake you up at night or earlier than usual in the morning?: Not at all During the past 4 weeks, how often have you had to use your rescue inhaler or nebulizer medication?: Not at all How would you rate your asthma control during the past 4 weeks?: Completely controlled ACT Interpretation: Negative Score: 25 Physical exam (Primary Care) Vital Signs: Last Vital Signs Pulse 104 H 12/15/23 08:36 Resp 14 12/15/23 08:36 BP 134/72 12/15/23 08:36 Pulse Ox 97 12/15/23 08:36 Oxygen Delivery Method Room Air 12/15/23 08:36 BMI result Body Mass Index 42.2 Tobacco/Smoking Status: Tobacco use Status Tobacco use date assessed 08/30/23 12/15/23 08:38 Patient Tobacco Use Status Former Tobacco user 12/15/23 08:38 Tobacco use type 08/31/23 14:13 e-Cigarette/Vaping Use Former Use 12/15/23 08:38 PHQ-9: PHQ-9 Score PHQ-9: Total score 4 12/15/23 08:38 Thrive Assessment: Date of Thrive Assessment Date Thrive assessed 12/15/23 12/15/23 08:38 Currently or been in a relationship where the following occur: No concerns reported Office Procedures Office Procedure Misc Details: G0449 15 MINUTES OBESITY EDUCATION Office Procedure Billing Code: AMB Procedure Billing Code (G0449 15 MINUTES OBESITY EDUCATION) Coding Level of Care Code Est Pt Level 4 (00860) Complex EM visit Add On G2211 Diagnoses Attention deficit hyperactivity disorder (ADHD), predominantly inattentive type F90.0 Attention deficit-hyperactivity disorder type: predominantly inattentive Body mass index (BMI) of 40.1 to 44.9 in adult Z68.41 Obesity, Class III, BMI 40-49.9 (morbid obesity) E66.01 Mild intermittent asthma without complication J45.20 Fatty liver K76.0 CPT Codes Office Procedure - Office Procedure Billing Code: AMB Procedure Billing Code ([id number]) Additional Codes MAYUR-7 Assessment Billing - MAYUR-7 Assessment Tool: MAYUR-7 Assessment 20328 ([id number]) PHQ-9 - 54464 - PHQ-9 Billing: Yes ([id number]) Asthma Control Questionnaire - ACT Interpretation: Negative ([id number]) Assessment & Plan Assessment & Plan (1) ADHD: Code(s): F90.9 - Attention-deficit hyperactivity disorder, unspecified type Category: Medical Qualifiers: Attention deficit-hyperactivity disorder type: predominantly inattentive Qualified Code(s): F90.0 - Attention-deficit hyperactivity disorder, predominantly inattentive type Plan: . (2) Body mass index (BMI) of 40.1 to 44.9 in adult: Code(s): Z68.41 - Body mass index [BMI] 40.0-44.9, adult Category: Medical Plan: . (3) Obesity, Class III, BMI 40-49.9 (morbid obesity): Code(s): E66.01 - Morbid (severe) obesity due to excess calories Category: Medical Plan: . (4) Mild intermittent asthma without complication: Code(s): J45.20 - Mild intermittent asthma, uncomplicated Category: Medical Plan: . (5) Fatty liver: Code(s): K76.0 - Fatty (change of) liver, not elsewhere classified Category: Medical Plan: . Plan . Medications: New atomoxetine 40 mg PO QAM 30 caps 0RF Changed From albuterol sulfate 90 mcg/actuation (ProAir HFA) 2 puffs inhalation Q4-6H PRN 8.5 grams 0RF shortness of breath or wheezing To albuterol sulfate 90 mcg/actuation 2 puffs inhalation Q4-6H PRN 8.5 grams 0RF shortness of breath or wheezing
[2023-12-15 08:36] VITALS: BP 134/72; PULSE 104; RESP 14; O2SAT 97; BMI 42.2
[2023-12-15 08:55] VITALS: PULSE 70
== END 2023-12-15 08:56 | disposition home or self-care (01) ==
LOC: HO.HMCFM 08:28
PROVIDERS: PCP Nurse Practitioner Family; Visit Provider Nurse Practitioner Family
DX: F90.0 Attention-deficit hyperactivity disorder, predominantly inattentive type (principal); Z68.41 Body mass index [BMI] 40.0-44.9, adult; E66.01 Morbid (severe) obesity due to excess calories; J45.20 Mild intermittent asthma, uncomplicated; K76.0 Fatty (change of) liver, not elsewhere classified

== ENCOUNTER → 2023-12-15 08:27 | Outpatient (BNVA) | payer OTHER, SELFPAY | PROVIDERS: PCP Nurse Practitioner Family; Visit Provider Nurse Practitioner Family | DX: F90.0 Attention-deficit hyperactivity disorder, predominantly inattentive type (principal); E66.01 Morbid (severe) obesity due to excess calories; Z68.41 Body mass index [BMI] 40.0-44.9, adult; J45.20 Mild intermittent asthma, uncomplicated; K76.0 Fatty (change of) liver, not elsewhere classified | CPT/HCPCS: 96127; 96160; 99212 ==

== ENCOUNTER 2024-01-14 09:43 | Outpatient (AMB) | payer OTHER, SELFPAY ==
--- NOTE | 2024-01-14 09:46 | A.OFFPC_ITS ---
Vital Signs 01/14/24 09:48 Height 5 ft 3 in Weight 238 lb BMI 42.2 BP 109/70 Blood Pressure Location Lt brachial Position Sitting Respiration 12 Pulse 78 Pulse Source Pulse Oximeter Temp 97.5 F Temp Source Skin Pulse Oximetry (%) 98 Oxygen Delivery Method Room Air Intake Visit Reasons: Med f/u Intake Note: med follow up Trapeze Artist Required: No Allergies No Known Allergies [No Known Allergies*] Allergy (Verified 01/14/24 10:04) Medication List - Last Reconciled 01/14/24 by Beba Tran, INDUSTRIAL CONTROLLER- albuterol sulfate 90 mcg/actuation 2 puffs inhalation Q4-6H PRN atomoxetine 40 mg PO QAM ibuprofen (IBU) 800 mg PO Q8H metformin ER 500 mg PO QPM Tobacco use date assessed: 08/30/23 Dental Screening Dental Screen Date: 08/30/23 HPI HPI Comments History of Present Illness Details Asya 28-year-old female with obesity, fatty l iver, celiac disease, mild intermittent asthma, former tobacco user, pitryiasis versicolor, ADHD Surgical Hx: wisdom teeth removal Social: , 1 year old son, 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 Since starting the Strattera 40 mg she reports a significant improvement in her ADHD symptoms. Reports that it is working perfectly for her without any side effects. In regards to the metformin she continues to take without any GI side effects. Her weight is stable. Exam: Awake alert, NAD Scleras nonicteric bilat RRR LS CTAB Mood and affect appropriate Plan Continue Strattera 40 mg p.o. daily. Ninety day prescription sent in. 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 Advised to let me know if she was having any side effects or if she has any insurance issues. Otherwise I will see her back in the office in 3 months for a follow up, sooner as needed. Total time spent caring for the patient today was 20 minutes. This includes time spent before the visit reviewing the chart, time spent during the visit, and time spent after the visit on documentation [facility] Medical History (Updated 12/15/23 @ 09:01 by ORION Cervantes-) COVID Asthma Elevated LFTs Cystitis Pelvic pressure in female Surgical History [place] teeth removed Family History (Updated 08/30/23 @ 13:26 by Viviana Lee CMA) Paternal Grandmother Diabetes Paternal Aunt Liver disease Father No problems noted. Mother No problems noted. 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 95216 - PHQ-9 Billing: Patient declined-do not bill Source: Developed by Drs. Sven Baig, Lili Godinez, Ruddy Dunn and colleagues, with an educational dada from [employer]. Thrive Questionnaire Date Thrive assessed: 01/14/24 I am a: Patient What is your living situation today?: I have a place to live, but I am worried about losing it in the future Within the past 12 months, did the food you bought not last and you didn't have the money to get more?: Never true Within the past 12 months, did you worry whether your food would run out before you got money to buy more?: Never true Do you have trouble paying for medicines?: No Do you have trouble getting transportation to medical appointments?: No Do you have trouble paying your heating and electricity bill?: No Do you have trouble taking care of your child, family member or friend?: No Do you have trouble with day-to-day activities such as bathing, preparing meals, shopping, managing finances, etc.?: No Are you currently unemployed and looking for a job?: No Are you interested in more education?: No Please select the resources that you would like help with: None Currently or been in a relationship where the following occur: No concerns reported THRIVE Score: 1 MAYUR-7 AMB Questionnaire MAYUR-7 Date MAYUR - 7 assessed: 01/14/24 Source: Developed by Drs. Sven Baig, Lili Godinez, Ruddy Dunn and colleagues, with an educational dada from [employer]. Physical exam (Primary Care) Vital Signs: Last Vital Signs Temp 97.5 F 01/14/24 09:48 Pulse 78 01/14/24 09:48 Resp 12 01/14/24 09:48 BP 109/70 01/14/24 09:48 Pulse Ox 98 01/14/24 09:48 Oxygen Delivery Method Room Air 01/14/24 09:48 BMI result Body Mass Index 42.2 Tobacco/Smoking Status: Tobacco use Status Tobacco use date assessed 08/30/23 01/14/24 09:50 Patient Tobacco Use Status Former Tobacco user 01/14/24 09:50 Tobacco use type 08/31/23 14:13 e-Cigarette/Vaping Use Former Use 01/14/24 09:50 Thrive Assessment: Date of Thrive Assessment Date Thrive assessed 01/14/24 01/14/24 09:50 Currently or been in a relationship where the following occur: No concerns reported Coding Level of Care Code Est Pt Level 3 (97481) Complex EM visit Add On G2211 Diagnoses Attention deficit hyperactivity disorder (ADHD), predominantly inattentive type F90.0 Attention deficit-hyperactivity disorder type: predominantly inattentive Obesity, Class III, BMI 40-49.9 (morbid obesity) E66.01 Assessment & Plan Assessment & Plan (1) ADHD: Code(s): F90.9 - Attention-deficit hyperactivity disorder, unspecified type Category: Medical Qualifiers: Attention deficit-hyperactivity disorder type: predominantly inattentive Qualified Code(s): F90.0 - Attention-deficit hyperactivity disorder, predo minantly inattentive type (2) Obesity, Class III, BMI 40-49.9 (morbid obesity): Code(s): E66.01 - Morbid (severe) obesity due to excess calories Category: Medical Plan . Medications: New metformin ER 750 mg PO QPM 90 tabs 0RF Refilled atomoxetine 40 mg PO QAM 90 caps 0RF Discontinued metformin ER Discontinued Reason: Doctor's Order 500 mg PO QPM 90 tabs 0RF
[2024-01-14 09:48] VITALS: BP 109/70; PULSE 78; RESP 12; TEMP 36.4; O2SAT 98; BMI 42.2
== END 2024-01-14 10:15 | disposition home or self-care (01) ==
PROVIDERS: PCP Nurse Practitioner Family; Visit Provider Nurse Practitioner Family
DX: F90.0 Attention-deficit hyperactivity disorder, predominantly inattentive type (principal); E66.01 Morbid (severe) obesity due to excess calories; Z68.41 Body mass index [BMI] 40.0-44.9, adult

== ENCOUNTER → 2024-01-14 09:43 | Outpatient (BNVA) | payer OTHER, SELFPAY | PROVIDERS: PCP Nurse Practitioner Family; Visit Provider Nurse Practitioner Family | DX: F90.0 Attention-deficit hyperactivity disorder, predominantly inattentive type (principal); E66.01 Morbid (severe) obesity due to excess calories; Z68.41 Body mass index [BMI] 40.0-44.9, adult; Z71.3 Dietary counseling and surveillance; Z87.891 Personal history of nicotine dependence | CPT/HCPCS: 99212 ==

== ENCOUNTER → 2024-03-03 09:34 | Outpatient (BNVA) | payer OTHER, SELFPAY | PROVIDERS: PCP Nurse Practitioner Family; Visit Provider Nurse Practitioner Family | DX: E66.01 Morbid (severe) obesity due to excess calories (principal); Z68.41 Body mass index [BMI] 40.0-44.9, adult; Z71.3 Dietary counseling and surveillance | CPT/HCPCS: 96127; 99212 ==

== ENCOUNTER 2024-04-14 08:21 | Outpatient (AMB) | payer OTHER, SELFPAY ==
--- NOTE | 2024-04-14 08:27 | A.OFFPC_ITS ---
Vital Signs 04/14/24 08:32 Height 5 ft 3 in Weight 226 lb 2 oz BMI 40.1 BP 98/66 Blood Pressure Location Rt brachial Position Sitting Respiration 12 Pulse 85 Pulse Source Pulse Oximeter Temp 96.8 F Temp Source Oral Pulse Oximetry (%) 99 Oxygen Delivery Method Room Air Intake Visit Reasons: 3 months Med Check/FU 15 min Intake Note: Med check follow up Cigarette Examiner Required: No Allergies No Known Allergies [No Known Allergies*] Allergy (Verified 04/14/24 08:44) Medication List - Last Reconciled 04/14/24 by Beba Tran, MANAGER TRANSFER- albuterol sulfate 90 mcg/actuation 2 puffs inhalation Q4-6H PRN atomoxetine 40 mg PO QAM ibuprofen (IBU) 800 mg PO Q8H metformin ER 1,000 mg (2 x 500 mg) PO DAILY Tobacco use date assessed: 04/14/24 Dental Screening Dental Screen Date: 04/14/24 Did you have a dental visit in the last 12 months?: Yes Did you have a dental problem in the last 6 months where you did not have access to dental care?: No Was dental information given to patient?: Patient has dentist HPI HPI Comments History of Present Illness Details Asya 28-year-old female with obesity, fatty l iver, celiac disease, mild intermittent asthma, former tobacco user, pitryiasis versicolor, ADHD Surgical Hx: wisdom teeth removal Social: , 1 year old son, 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 - Obesity: BMI of 40.1, previously incre ased metformin from 750 mg to 1000 mg. Has lost 4 pounds since the last visit. Continues exercise regimen, no side effects reported from metformin. - NAFLD: Managed with metformin, elevate d liver enzymes were noted in August, ongoing monitoring of liver function suggested. - ADHD: Medicated with Strattera 40 mg, reports symptoms are well managed, intends to continue current treatment. -Asthma - well controlled PRN OK only. Physical Exam General: Well developed, well nourished, in no acute distress. Appears stated age. Head: Normocephalic, atraumatic. Eyes: Pupils are equal, round and reactive to light and accommodation. Conjunctivae are clear. Vision grossly normal. Lungs: Clear to auscultation bilaterally. No rales, rhonchi or wheeze noted. Good air flow in all hwang. Heart: Regular rate and rhythm. No murmurs, click, rubs or gallops are noted. Abdomen: Bowel sounds present in all quadrants. The abdomen is soft, nontender, with no masses or organomegaly noted. No hernias are noted. Psych: Mood and affect appropriate. ADHD symptoms are managed well. No issues with anxiety or mood disturbances reported. Results - Labs: Previous elevated liver enzymes in August, A1c was 5.1. Discussion Notes I discussed with the patient the progress in her weight loss journey, noting her positive response to the increased metformin dosage. We reviewed her continued management of ADHD with Strattera, and she reported satisfactory symptom control. I explained the importance of maintaining her current exercise routine and dietary monitoring to sustain weight loss and alleviate her NAFLD condition. I recommended updating her laboratory tests to monitor her A1c and liver enzymes on a non-fasting basis at her convenience, preferably at a facility she is comfortable with. We also reviewed her asthma and pain management medications, ensuring she has an adequate supply. Assessment and Plan 1. Obesity due to excess calories: - Positive response to increased metform in dosage with weight loss observed. Continue exercise routine and dietary monitoring. No adverse effects, so maintain current medication regimen. 2. Non-alcoholic fatty liver disease (NA FLD): - Maintain metformin therapy. Recommend updated lab tests to monitor liver enzyme levels and A1c to evaluate current treatment efficacy. 3. Attention Deficit Hyperactivity Disor mariangel (ADHD): - Symptoms well-managed with Strattera 4 0 mg. Medically stable, continue current treatment plan with reassessment as needed. 4. Asthma PRN ok Patient Instructions - Continue current exercise and dietary management for weight loss. - Maintain metformin 1000 mg as prescrib ed without missing doses. - Continue Strattera 40 mg for ADHD vinny gement. - Schedule and complete non-fasting lab tests to monitor liver enzymes and A1c. - Ensure albuterol supply for asthma man agement and take ibuprofen only as needed. - Follow-up in three months for a wellne ss exam; come earlier if experiencing new symptoms or concerns arise. Consent Consent was obtained verbally from the patient to proceed with the updated laboratory assessments. The patient agreed to continue the current management plan for obesity, NAFLD, and ADHD, understanding the rationale behind the treatment, potential benefits, and possible outcomes of continuing the present medication regimen. There are no immediate procedural consents required at this visit. Patient was informed and verbally consented to the use of an ambient scribe for clinic note documentation during this visit. Total time spent caring for the patient today was 30 minutes. This includes time spent before the visit reviewing the chart, time spent during the visit, and time spent after the visit on documentation, reviewing laboratory results, diagnostic imaging, medications, performing a medically necessary evaluation, counseling on diagnoses, care coordination, ordering appropriate tests, ordering appropriate medications, review of tests performed by other providers, reporting test results with the patient, communication with other healthcare providers. [facility] Medical History (Updated 12/15/23 @ 09:01 by Beba Tran, MANAGER TRANSFER-) Asthma COVID Cystitis Elevated LFTs Pelvic pressure in female Surgical History [place] teeth removed Family History (Updated 08/30/23 @ 13:26 by Viviana Lee [facility]) Paternal Grandmother Diabetes Paternal Aunt Liver disease Father No problems noted. Mother No problems noted. 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 09442 - PHQ-9 Billing: Patient declined-do not bill Source: Developed by Drs. Sven Baig, Lili Godinez, Ruddy Dunn and colleagues, with an educational dada from [employer]. Thrive Questionnaire Date Thrive assessed: 04/14/24 I am a: Patient What is your living situation today?: I have a steady place to live Within the past 12 months, did the food you bought not last and you didn't have the money to get more?: Never true Within the past 12 months, did you worry whether your food would run out before you got money to buy more?: Never true Do you have trouble paying for medicines?: No Do you have trouble getting transportation to medical appointments?: No Do you have trouble paying your heating and electricity bill?: No Do you have trouble taking care of your child, family member or friend?: No Do you have trouble with day-to-day activities such as bathing, preparing meals, shopping, managing finances, etc.?: No Are you currently unemployed and looking for a job?: No Are you interested in more education?: No Please select the resources that you would like help with: None Currently or been in a relationship where the following occur: No concerns reported THRIVE Score: 0 MAYUR-7 AMB Questionnaire MAYUR-7 Date MAYUR - 7 assessed: 03/03/24 Source: Developed by Drs. Sven Baig, Lili Godinez, Ruddy Dunn and colleagues, with an educational dada from [employer]. ACT Questionnaire In the past 4 weeks, how much of the time did your asthma keep you from getting as much done at work, school or at home?: None of the time During the past 4 weeks, how often have you had shortness of breath?: Not at all During the past 4 weeks, how often did your asthma symptoms wake you up at night or earlier than usual in the morning?: Not at all During the past 4 weeks, how often have you had to use your rescue inhaler or nebulizer medication?: Not at all How would you rate your asthma control during the past 4 weeks?: Completely controlled ACT Interpretation: Negative Score: 25 Physical exam (Primary Care) Vital Signs: Last Vital Signs Temp 96.8 F 04/14/24 08:32 Pulse 85 04/14/24 08:32 Resp 12 04/14/24 08:32 BP 98/66 04/14/24 08:32 Pulse Ox 99 04/14/24 08:32 Oxygen Delivery Method Room Air 04/14/24 08:32 BMI result Body Mass Index 40.1 Tobacco/Smoking Status: Tobacco use Status Tobacco use date assessed 04/14/24 04/14/24 08:31 Patient Tobacco Use Status Former Tobacco user 04/14/24 08:28 Tobacco use type 08/31/23 14:13 e-Cigarette/Vaping Use Former Use 04/14/24 08:28 Thrive Assessment: Date of Thrive Assessment Date Thrive assessed 04/14/24 04/14/24 08:28 Currently or been in a relationship where the following occur: No concerns reported Coding Level of Care Code Est Pt Level 4 (11429) Complex EM visit Add On G2211 Diagnoses Elevated LFTs R79.89 Fatty liver K76.0 Body mass index (BMI) of 40.1 to 44.9 in adult Z68.41 Attention deficit hyperactivity disorder (ADHD), predominantly inattentive type F90.0 Attention deficit-hyperactivity disorder type: predominantly inattentive Obesity, Class III, BMI 40-49.9 (morbid obesity) E66.01 Mild intermittent asthma without complication J45.20 Additional Codes Asthma Control Questionnaire - ACT Interpretation: Negative ([id number]) Assessment & Plan Assessment & Plan (1) Elevated LFTs: Code(s): R79.89 - Other specified abnormal findings of blood chemistry Category: Medical (2) Fatty liver: Code(s): K76.0 - Fatty (change of) liver, not elsewhere classified Category: Medical (3) Body mass index (BMI) of 40.1 to 44.9 in adult: Code(s): Z68.41 - Body mass index [BMI] 40.0-44.9, adult Category: Medical (4) ADHD: Code(s): F90.9 - Attention-deficit hyperactivity disorder, unspecified type Category: Medical Qualifiers: Attention deficit-hyperactivity disorder type: predominantly inattentive Qualified Code(s): F90.0 - Attention-deficit hyperactivity disorder, predominantly inattentive type (5) Obesity, Class III, BMI 40-49.9 (morbid obesity): Code(s): E66.01 - Morbid (severe) obesity due to excess calories Category: Medical (6) Mild intermittent asthma without complication: Code(s): J45.20 - Mild intermittent asthma, uncomplicated Category: Medical Plan . Orders: Orders Comprehensive Met. Panel Today E66.01 - Morbid (severe) obesity due to excess calories, F90.0 - Attention-deficit hyperactivity disorder, predominantly inattentive type, K76.0 - Fatty (change of) liver, not elsewhere classified, R79.89 - Other specified abnormal findings of blood chemistry, Z68.41 - Body mass index [BMI] 40.0-44.9, adult Hemoglobin A1c Today E66.01 - Morbid (severe) obesity due to excess calories, F90.0 - Attention-deficit hyperactivity disorder, predominantly inattentive ty pe, K76.0 - Fatty (change of) liver, not elsewhere classified, R79.89 - Other specified abnormal findings of blood chemistry, Z68.41 - Body mass index [BMI] 40.0-44.9, adult Medications: Refilled atomoxetine 40 mg PO QAM 90 caps 0RF
[2024-04-14 08:32] VITALS: BP 98/66; PULSE 85; RESP 12; TEMP 36; O2SAT 99; BMI 40.1
--- OUTSIDE RECORDS SUMMARY | 2024-04-14 08:46 | XMS_ITS | Clinical Summary ---
Author Organization Patient Business Ser [facility] Address [address] [place] [address] Care Team Providers Care Capsule Inspector Name Role Phone Unavailable Primary Care Provider Unavailabl e Surgical History Surgery Date Site/Laterality Comments WISDOM TOOTH EXTRACTION PROCEDURE: HISTORICAL WISDOM TEETH EXTRACTION SECTION 07/13/2022 PROCEDURE: HISTORICAL DELIVERY Medical History Medical History Date Comments Mild intermittent asthma, uncomplicated DX:Mild intermittent asthma, uncomplicated Fatty liver DX:Fatty liver Generalized anxiety disorder DX: Generalized anxiety disorder; COMMENT: had therapy during Pandemic Family History Medical History Relation Name Comments No Known Problems Father Other: GI issues Maternal Grandmother Other: esophagus problems Maternal Grandmother Seizures Mother from MVA No Known Problems Paternal Grandfather Diabetes Paternal Grandmother Breast cancer Neg Hx Ovarian cancer Neg Hx Uterine cancer Neg Hx Relation Name Status Comments Brother 1/2 Alive Father Alive Maternal Grandfather Alive Maternal Grandmother Alive Mother Alive Paternal Grandfather Paternal Grandmother Sister 1/2 Alive Social History Tobacco Use Types Packs/Day Years Used Date Smoking Tobacco: Never Smokeless Tobacco: Never Alcohol Use Standard Drinks/Week Comments Not Currently 0 (1 standard drink = 0.6 oz pur e alcohol) Comments Unknown Sex and Gender Information Value Date Recorded Sex Assigned at Not on file Legal Sex Female 5:36 AM EST Gender Identity Not on file Sexual Orientation Not on file Obstetrics History Last Filed Vital Signs Vital Sign Reading Time Taken Comments Blood Pressure 100/72 10/19/2022 2:36 PM EDT Pulse 87 10/19/2022 2:36 PM EDT Temperature - - Respiratory Rate - - Oxygen Saturation - - Inhaled Oxygen Concentration - - Weight 98 kg (216 lb) 10/14/2022 9:55 AM EDT Height 161.3 cm (5' 3.5 ) 07/10/2022 9:43 AM EDT Body Mass Index 37.66 07/10/2022 9:43 AM EDT Plan of Treatment Health Maintenance Due Date Last Done Comments Hepatitis A Vaccines (1 of 2 - Risk 2-dose series) 2016 Hepatitis B Vaccines (1 of 3 - 19+ 3-dose series) 2016 Pneumococcal Vaccine: Pediat rics (0 to 5 Years) and At-Risk Patients (6 to 64 Years) (1 of 2 - PCV) 2016 Depression Screening 01/11/2022 HIV Screening 01/11/2022 Hepatitis C Screening 01/11/2022 Social Influencers of Health Screening 01/11/2022 HPV Vaccines (2 - 3-dose series) 11/16/2022 10/20/19 COVID-19 Vaccine ( - 2023-2 5 season) 2023 Influenza Vaccine (#1) 2023 03/11/2022 Cervical Cancer Screening: P ap Smear 08/25/2025 08/25/2022 DTaP,Tdap,and Td Vaccines (2 - Td or Tdap) 05/06/2032 05/06/2022 MMR Vaccines Aged Out 07/15/2022 No longer eligi ble based on patient's age to complete this topic HIB Vaccines Aged Out No longer eligi ble based on patient's age to complete this topic IPV Vaccines Aged Out No longer eligi ble based on patient's age to complete this topic Meningococcal ACWY Vaccine Aged Out N o longer eligible based on patient's age to complete this topic Meningococcal B Vacine Aged Out No lo nger eligible based on patient's age to complete this topic RSV Immunization Patients Un mariangel 20 months Aged Out No longer eligible b ased on patient's age to complete this topic Varicella Vaccines Aged Out No longer eligible based on patient's age to complete this topic Procedures Procedure Name Priority Date/Time Associated Diagnosis Comments PAP SMEAR Routine 08/25/2022 from Last 3 Months or Most Recently Relevant to Health Maintenance Results * Pap smear (08/25/2022) 08/25/2022 Narrative HISTORICAL TESTING LAB RESULTING AGENCY - 09/01/2022 4:30 PM EDT [id number] THINPREP PAP, IMAGED: LOW-GRADE SQUAMOUS INTRAEPITHELIAL LESION (LSIL) . ELVIS SUAREZ , BERTHA(ASCP) (CASE SCREENED 08 31 2022) KIRA PAUL M.D. , PATHOLOGIST (CASE ELECTRONICALLY SIGNED 09 01 2022) ADEQUACY: SATISFACTORY ENDOCERVICAL/TRANSFORMATION ZONE COMPONENT PRESENT. SOURCE: THINPREP PAP HPV IF ASCUS, CERVICAL, IMAGED CLINICAL INFORMATION: HPV IF DIAGNOSIS OF ASCUS. Z12.4 Martha Chavira CNM LAB CYTOLOGY ORDERABLES Final Result HISTORICAL TESTING LAB RESULTING AGENCY from Last 3 Months or Most Recently Relevant to Health Maintenance
== END 2024-04-14 08:51 | disposition home or self-care (01) ==
PROVIDERS: PCP Nurse Practitioner Family; Visit Provider Nurse Practitioner Family
DX: J45.20 Mild intermittent asthma, uncomplicated (principal); Z68.41 Body mass index [BMI] 40.0-44.9, adult; E66.01 Morbid (severe) obesity due to excess calories; R79.89 Other specified abnormal findings of blood chemistry; K76.0 Fatty (change of) liver, not elsewhere classified; F90.0 Attention-deficit hyperactivity disorder, predominantly inattentive type

== ENCOUNTER → 2024-04-14 08:21 | Outpatient (BNVA) | payer OTHER, SELFPAY | PROVIDERS: PCP Nurse Practitioner Family; Visit Provider Nurse Practitioner Family | DX: R79.89 Other specified abnormal findings of blood chemistry (principal); K76.0 Fatty (change of) liver, not elsewhere classified; E66.01 Morbid (severe) obesity due to excess calories; Z68.41 Body mass index [BMI] 40.0-44.9, adult; F90.0 Attention-deficit hyperactivity disorder, predominantly inattentive type; J45.20 Mild intermittent asthma, uncomplicated; Z71.3 Dietary counseling and surveillance | CPT/HCPCS: 96160; 99212 ==

== ENCOUNTER 2024-07-14 08:54 | Outpatient (AMB) | payer OTHER, SELFPAY ==
--- NOTE | 2024-07-14 08:57 | MHC.PC.OV ---
Vital Signs 07/14/24 09:01 07/14/24 09:55 Height 5 ft 3 in Weight 235 lb 6 oz BMI 41.7 BP 102/82 Blood Pressure Location Lt brachial Position Sitting Respiration 14 Pulse 101 H 80 Pulse Source Pulse Oximeter Auscultation Pulse Oximetry (%) 98 Oxygen Delivery Method Room Air Intake Visit Reasons: Medication Change Intake Note: Medication change. Atomoxetine is too costly. Allergies No Known Allergies [No Known Allergies*] Allergy (Verified 07/14/24 09:41) Medication List - Last Reconciled 07/14/24 by Beba Tran, 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 - Copay increased to $150 for 30 days; previously was $30. - Non-stimulant preferred due to insurance. - Follow-up on weight management and prior metformin ER treatment. - Insurance issue stopped metformin ER; pending insurance review. - Wt has increased. - Anxiety reported with sleep difficulties, associated with work stress and house purchasing process. - Anxiety heightened by ADHD medication discontinuation. - Does not want meds to help w/ sleep at this time. - Interested in Wt Mgmt referral @ this time - No harmful thoughts or behaviors. Review of Systems - Psychiatric: Reports anxiety, work-related stress, trouble sleeping. - Neurological: Denies feeling of harmful thoughts, no reported panic attacks. - General: Reports trouble focusing due to ADHD, exacerbated by discontinuation of Strattera. Physical Exam General: Well developed, well nourished, in no acute distress. Appears stated age. Head: Normocephalic, atraumatic. Eyes: Pupils are equal, round and reactive to light and accommodation. Conjunctivae are clear. V Lungs: Clear to auscultation bilaterally. No rales, rhonchi or wheeze noted. Good air flow in all hwang. Heart: Regular rate and rhythm. No murmurs, click, rubs or gallops are noted. Extremities: No clubbing, cyanosis nor edema is noted. Psych: Mood and affect appropriate. Tearful, appropriate. Discussion Notes During the visit, I reviewed the patient's difficulty with obtaining her ADHD medication due to insurance changes. I explained the potential risks and benefits of continuing with her preferred non-stimulant Strattera versus switching to a covered stimulant medication, highlighting the risks of increased anxiety, addiction potential, and required frequent monitoring with stimulants. I introduced the option of using a GoodRx coupon to reduce medication costs without using insurance, explaining how it operates and reassuring her of its persistent availability. The patient expressed concerns about her general anxiety triggered by her current life stressors, including work difficulties and purchasing a new home. I discussed how ADHD medications can exacerbate anxiety, further complicating her current stress conditions. We also discussed her ongoing weight management and difficulty obtaining metformin ER due to insurance changes, with a willingness to explore non-ER options if metformin coverage continues to be a problem. I recommended reaching out to my office if further issues persist in obtaining medications. Assessment and Plan 1. Attention-Deficit/Hyperactivity Disorder (ADHD) - Continue Strattera. - Use GoodRx coupon. - Discuss stimulant risks. 2. Obesity - Manage with non-ER metformin if coverage issues persist. - Refer to [facility] [place]. 3. Anxiety - Monitor anxiety worsened by stress and medication changes. 4. Difficulty with Sleep - Encourage routine adjustments. Patient Instructions - Use the GoodRx coupon for Strattera to reduce medication costs. - Contact the office if you face further issues filling your prescriptions. - Explore relaxation techniques or lifestyle changes to improve sleep. - Consider engaging in non-surgical weight management programs as discussed. - Monitor anxiety levels and reach out if you require further support. - Keep follow-up appointments for ongoing medication and health management. RTO in August for CPE sooner PRN Consent for clinic note documentation during this visit. Total time spent caring for the patient today was 45 minutes. This includes time spent before the visit reviewing the chart, time spent during the visit, and time spent after the visit on documentation, reviewing laboratory results, diagnostic imaging, medications, performing a medically necessary evaluation, counseling on diagnoses, care coordination, ordering appropriate tests, ordering appropriate medications, review of tests performed by other providers, reporting test results with the patient, communication with other healthcare providers. [facility] Medical History (Updated 07/14/24 @ 10:02 by Beba Tran, [facility]) Asthma COVID Cystitis Elevated LFTs Pelvic pressure in female Surgical History Offerle teeth removed Family History Paternal Grandmother Diabetes Paternal Aunt Liver disease Father No problems noted. Mother No problems noted. 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 Current occupational exposures/hazards: No Gender identity: Female Cognitive needs: Yes Hearing needs: No Vision needs: No Female Reproductive History Menstrual Age of Menarche: 16 Questionnaire Thrive Questionnaire Date Thrive assessed: 03/03/24 I am a: Patient What is your living situation today?: I have a steady place to live Within the past 12 months, did the food you bought not last and you didn't have the money to get more?: Never true Within the past 12 months, did you worry whether your food would run out before you got money to buy more?: Never true Do you have trouble paying for medicines?: No Do you have trouble getting transportation to medical appointments?: No Do you have trouble paying your heating and electricity bill?: No Do you have trouble taking care of your child, family member or friend?: No Do you have trouble with day-to-day activities such as bathing, preparing meals, shopping, managing finances, etc.?: No Are you currently unemployed and looking for a job?: No Are you interested in more education?: No Please select the resources that you would like help with: None Currently or been in a relationship where the following occur: No concerns reported THRIVE Score: 0 AUDIT C Alcohol Use Questionnaire (AUDIT-C) 1. How often do you have a drink containing alcohol?: Monthly or less 2. How many drinks containing alcohol do you have on a typical day when you are drinking?: 1 or 2 3. How often do you have six or more drinks on one occasion?: Never Total Score: 1 MAYUR-7 AMB Questionnaire MAYUR-7 Date MAYUR - 7 assessed: 03/03/24 Source: Developed by Drs. Sven Baig, Lili Godinez, Ruddy Dunn and colleagues, with an educational dada from [email or web address]. Physical exam (Primary Care) Vital Signs: Last Vital Signs Pulse 101 H 07/14/24 09:01 Resp 14 07/14/24 09:01 BP 102/82 07/14/24 09:01 Pulse Ox 98 07/14/24 09:01 Oxygen Delivery Method Room Air 07/14/24 09:01 BMI result Body Mass Index 41.7 Tobacco/Smoking Status: Tobacco use Status Tobacco use date assessed 07/14/24 07/14/24 09:05 Patient Tobacco Use Status Former Tobacco user 07/14/24 09:05 Tobacco use type 08/31/23 14:13 e-Cigarette/Vaping Use Former Use 07/14/24 09:05 Thrive Assessment: Date of Thrive Assessment Date Thrive assessed 03/03/24 07/14/24 09:05 Currently or been in a relationship where the following occur: No concerns reported Coding Level of Care Code Est Pt Level 5 (66015) Complex EM visit Add On G2211 Diagnoses Obesity, Class III, BMI 40-49.9 (morbid obesity) E66.01 Attention deficit hyperactivity disorder (ADHD), predominantly inattentive type F90.0 Attention deficit-hyperactivity disorder type: predominantly inattentive Fatty liver K76.0 Situational anxiety F41.8 Assessment & Plan Assessment & Plan (1) Obesity, Class III, BMI 40-49.9 (morbid obesity): Code(s): E66.01 - Morbid (severe) obesity due to excess calories Category: Medical (2) ADHD: Code(s): F90.9 - Attention-deficit hyperactivity disorder, unspecified type Category: Medical Qualifiers: Attention deficit-hyperactivity disorder type: predominantly inattentive Qualified Code(s): F90.0 - Attention-deficit hyperactivity disorder, predominantly inattentive type (3) Fatty liver: Code(s): K76.0 - Fatty (change of) liver, not elsewhere classified Category: Medical (4) Situational anxiety: Code(s): F41.8 - Other specified anxiety disorders Category: Medical Plan . Orders: Referrals Medical Weight Management Referral E66.01 - Morbid (severe) obesity due to excess calories Medications: Refilled atomoxetine 40 mg PO QAM 90 caps 2RF Patient Instructions: National Suicide and Crisis Lifeline: Available 24 hours a day, 7 days a week, 365 days a year Dial 988 with any telephone to speak to someone immediately [address] [address] , Walk [facility] (Mental / Behavioral health therapist: [address] [place] [address] [facility] ([facility] at [facility]: [address] [place] [id number] Open from 10am - 12pm (walk ins tollhouse) [facility] Crisis Services: [address] [place] [address] Walk in hours from 10am - 12pm Behavioral health Network: [address] [place] [address] [phone] [address] [place] [address] [phone] Wednesday through Wednesday 8am - 8pm Wednesday and Wednesday 9am - 5pm Crisis Hotlines Suicide prevention, domestic violence, and other crisis hotlines for youth, young adults, and their friends and families. VOSSline: The [employer] Safeline helps youth who have run away, are thinking about running away, or who already ran away but are ready to come home. Parents and guardians can also contact the hotline if they are worried about their child running away or if their child has already left home. The hotline is available 24 hours a day, seven days a week. Youth, parents, and guardians can also use the online chat feature on the [facility]'s website to ask for help and get support, [place] [address]. National Runaway Safeline National Suicide Prevention Lifeline: The National Suicide Prevention Lifeline is a network of local crisis centers that are available 31/08 to provide support for youth and adults who are in any kind of emotional crisis. In addition to the main hotline number listed above, there are several other numbers to call depending on your needs: Italian Language: Deaf and Hard of Hearin1-849.114.4097 Veterans: Disaster Distress: Anyone can also use their online chat feature on their website. [place] Suicide Prevention Lifeline [facility] Helpline: The [facility] Helpline is available to anyone in [place] who is need of emotional support. Anyone can call or text the helpline to receive help from specially trained volunteers. [place] high school and college students can also get online support through the IMHear_ program. For high school students, volunteers ages 15-18 are available Wednesday- from 6-9PM. For college students, IMHear_ is available Wednesday-Wednesday from 5-9PM. The Jayesh Project - The Jayesh Project is a 31/08 crisis intervention and suicide prevention hotline for LGBTQ youth. Youth can also text Jayesh to for support, or use the online chat feature on the Jayesh Project's website. TrevorText is available Wednesday-Wednesday between 3-10PM. TrevorChat is available seven days a week between 3-10PM. SafeLink: SafeLink is for anyone who is being affected by domestic violence or dating violence. Volunteers at SafeLink speak Argentine and Italian, and SafeLink also has a service that can provide translation in more than 130 languages. TTY:
[2024-07-14 09:01] VITALS: BP 102/82; PULSE 101; RESP 14; O2SAT 98; BMI 41.7
--- OUTSIDE RECORDS SUMMARY | 2024-07-14 09:11 | XMS_ITS | Clinical Summary ---
Author Organization Patient Business Ser 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 ELVIS SUAREZ , BERTHA(ASCP) (CASE SCREENED 08 31 2022) KIRA PAUL M.D. , PATHOLOGIST (CASE ELECTRONICALLY SIGNED 09 01 2022) ADEQUACY: SATISFACTORY ENDOCERVICAL/TRANSFORMATION ZONE COMPONENT PRESENT. SOURCE: THINPREP PAP HPV IF ASCUS, CERVICAL, IMAGED CLINICAL INFORMATION: HPV IF DIAGNOSIS OF ASCUS. Z12.4 Martha [facility] CYTOLOGY ORDERABLES Final Result HISTORICAL TESTING LAB RESULTING AGENCY from Last 3 Months or Most Recently Relevant to Health Maintenance
[2024-07-14 09:55] VITALS: PULSE 80
== END 2024-07-14 09:59 | disposition home or self-care (01) ==
LOC: HO.HMCFM 08:54
PROVIDERS: PCP Nurse Practitioner Family; Visit Provider Nurse Practitioner Family
DX: E66.01 Morbid (severe) obesity due to excess calories (principal); F90.0 Attention-deficit hyperactivity disorder, predominantly inattentive type; K76.0 Fatty (change of) liver, not elsewhere classified; F41.8 Other specified anxiety disorders; Z68.41 Body mass index [BMI] 40.0-44.9, adult

== ENCOUNTER → 2024-07-14 08:54 | Outpatient (BNVA) | payer OTHER, SELFPAY | PROVIDERS: PCP Nurse Practitioner Family; Visit Provider Nurse Practitioner Family | DX: E66.01 Morbid (severe) obesity due to excess calories (principal); F90.9 Attention-deficit hyperactivity disorder, unspecified type; F41.9 Anxiety disorder, unspecified; G47.9 Sleep disorder, unspecified; K76.0 Fatty (change of) liver, not elsewhere classified; Z68.41 Body mass index [BMI] 40.0-44.9, adult; Z79.899 Other long term (current) drug therapy | CPT/HCPCS: 99212 ==

== ENCOUNTER 2024-12-12 16:33 | Outpatient (REF) | payer OTHER, SELFPAY ==
--- NOTE | ~2024-12-12 | XR_ITS ---
EXAMINATION: XR WRIST, LEFT CLINICAL INFORMATION: M79.642 - Pain in left hand; injury. COMPARISON: None available. TECHNIQUE: PA, lateral, and oblique views of the left wrist. FINDINGS: The bones and soft tissues are normal. No fracture. Alignment is anatomic with normal joint spaces. No erosions or abnormal soft tissue calcifications. XR/XR wrist LT min 3V IMPRESSION: Normal left wrist. Electronically signed by: Hema Chiu MD 12/12/2024 04:51 PM [facility]
--- NOTE | ~2024-12-12 | XR_ITS ---
EXAMINATION: XR HAND, LEFT CLINICAL INFORMATION: M79.642 - Pain in left hand; injury. COMPARISON: None available. TECHNIQUE: PA, lateral, and oblique views of the left hand. FINDINGS: The bones and soft tissues are normal. No fracture. Alignment is anatomic. Joint spaces are maintained. No erosions or soft tissue calcifications. XR/XR hand LT min 3V IMPRESSION: Normal left hand. Electronically signed by: Hema Chiu MD 12/12/2024 04:52 PM [facility]
== END 2024-12-12 16:34 | disposition home or self-care (01) ==
LOC: HO.HMGCX 16:33
PROVIDERS: PCP Nurse Practitioner Family; Visit Provider Nurse Practitioner Family
DX: M79.642 Pain in left hand (principal)
CPT/HCPCS: 73110; 73130

== ENCOUNTER → 2024-12-12 16:37 | Outpatient (BNV) | payer OTHER, SELFPAY | PROVIDERS: PCP Nurse Practitioner Family; Visit Provider Radiology Diagnostic Radiology | DX: M79.642 Pain in left hand (principal) | CPT/HCPCS: 73110; 73130 ==